=== PATIENT | female | born 1945 | race Two or more races ===

== ENCOUNTER 2018-02-11 13:49 | Emergency (ER) | payer OTHER, MEDICAID ==
[~2018-02-11] VITALS: Ht 154.9 cm; Wt 69.4 kg
[~2018-02-11 13:49] MED LIST: ASPI81CH43 PO; ATOR20TA50 PO; DOXY-216 PO; HYDR25TA4 PO; LISI-646 PO; MET5XLT PO; POTA-167 PO
[2018-02-11 14:11] VITALS: BP 227/105
[2018-02-11] MEDS ORDERED: ACETAMINOPHEN 325 MG TAB PO ONE (14:30)
[2018-02-11] MEDS ORDERED: amLODIPine BESYLATE 5 MG TAB PO ONE (15:00)
[2018-02-11] MEDS ORDERED: HYDROcodone-ACET 10/325MG TAB PO ONE (15:00)
== END 2018-02-11 16:44 | disposition home or self-care (01) ==
LOC: ER 13:49
DX: S82.852A Displaced trimalleolar fracture of left lower leg, initial encounter for closed fracture (principal); I10 Essential (primary) hypertension; W01.0XXA Fall on same level from slipping, tripping and stumbling without subsequent striking against object, initial encounter; Y93.89 Activity, other specified; Y99.8 Other external cause status; Y92.89 Other specified places as the place of occurrence of the external cause
CPT/HCPCS: 29515; 73610

== ENCOUNTER 2019-07-12 12:35 | Inpatient (IN) | payer OTHER, MEDICAID ==
[~2019-07-12] VITALS: Ht 154.9 cm; Wt 76.9 kg
[~2019-07-12 12:35] MED LIST changes: -DOXY-216 PO; +DOXY-286 PO; -MET5XLT PO; +METO-6 PO
[2019-07-12] MEDS ORDERED: cloNIDine HCL 0.1 MG TAB PO ONE (13:00)
[2019-07-12 13:38] LABS: Basophils # (auto) 0.1 10 ^3/uL (0-0.2); Basophils % (auto) 0.7 % (0.0-2.0); Eosinophils # (auto) 0.3 10 ^3/uL (0-0.8); Eosinophils % (auto) 2.2 % (0.0-7.0); Hematocrit 48.6 % (36.0-46.0); Hemoglobin 15.9 g/dL (12.2-16.2); Lymphocytes # (auto) 2.9 10 ^3/uL (0.4-5.4); Lymphocytes % (auto) 19.7 % (10.0-50.0); Mean Corpuscular Hemoglobin 27.2 pg (28.0-32.0); Mean Corpuscular Hgb Conc. 32.6 g/dL (32.0-36.0); Mean Corpuscular Volume 83.5 fL (80.0-100.0); Monocytes # (auto) 0.9 10 ^3/uL (0-1.3); Monocytes % (auto) 5.9 % (0.0-12.0); Neutrophils # (auto) 10.5 10 ^3/uL (1.6-8.6); Neutrophils % (auto) 71.5 % (37.0-80.0); Nucleated Red Blood Cells % 0.2 %; Platelet Count (auto) 261 10^3/uL (140-450); Red Blood Cells 5.83 10^6/uL (4.0-5.20); Red Cell Distribution Width 14.9 % (11.8-14.3); White Blood Cell 14.7 10^3/uL (4.4-10.8)
[2019-07-12 14:04] LABS: Albumin 3.6 g/dL (3.4-5.0); Calcium 8.9 mg/dL (8.5-10.1); Potassium 3.6 mmol/L (3.5-5.1)
[2019-07-12 14:06] LABS: Bilirubin, Total 0.3 mg/dL (0.2-1.0); Total Protein 8.1 g/dL (6.4-8.2)
[2019-07-12] MEDS ORDERED: HYDROcodone-ACET 10/325MG TAB PO ONE (14:30)
[2019-07-12 14:51] LABS: Magnesium 2.4 mg/dL (1.6-2.6)
[2019-07-12 15:44] LABS: Urine Bacteria NONE SEEN /hpf (None Seen); Urine Blood 1+ /uL (Negative); Urine Specific Gravity 1.011 (1.001-1.035); Urine WBC 2 /hpf (0 - 5)
[2019-07-12] MEDS ORDERED: ASPirin-EC 81 mg tab PO ONE (18:15)
[2019-07-12] MEDS ORDERED: MORPHINE SULF INJ 2 MG/ML SYRINGE 1ML IV PRN (20:15)
[2019-07-12 21:10] VITALS: BP 135/70
--- NOTE | 2019-07-12 21:20 | NUR ---
Telemetry admit from ER JENAE BECK admitted to Telemetry unit after SBAR received. Patient oriented to FRANK MTZ, RN primary RN, unit, room, bed, and unit policies regarding patient care and visiting hours. Patient now on continuous telemetry monitoring, tele box # 77 and telemetry reading on arrival to unit is SR-60. Patient placed on bedside oxygen, weighed by bedscale and encouraged to call if they need something. All questions and concerns addressed, patient verbalized understanding. Patient complained of left shoulder pain 8/10, will administer PRN pain medication.
[2019-07-12] MEDS: HYDROcodone-ACET 5/325MG TAB PO PRN (21:44)
[2019-07-12] MEDS: METOPROLOL TARTRATE 25 MG TAB PO SCH (21:44)
[2019-07-12] MEDS: ATORVASTATIN 20 MG TAB PO SCH (21:44)
[2019-07-12 22:00] VITALS: BP 135/70
[2019-07-13 05:00] VITALS: BP 134/77
[2019-07-13 06:33] LABS: Basophils # (auto) 0.1 10 ^3/uL (0-0.2); Basophils % (auto) 0.8 % (0.0-2.0); Eosinophils # (auto) 0.5 10 ^3/uL (0-0.8); Eosinophils % (auto) 4.4 % (0.0-7.0); Hematocrit 42.7 % (36.0-46.0); Hemoglobin 14.3 g/dL (12.2-16.2); Lymphocytes % (auto) 37.5 % (10.0-50.0); Mean Corpuscular Hemoglobin 27.9 pg (28.0-32.0); Mean Corpuscular Hgb Conc. 33.4 g/dL (32.0-36.0); Mean Corpuscular Volume 83.5 fL (80.0-100.0); Monocytes % (auto) 9.1 % (0.0-12.0); Neutrophils # (auto) 5.2 10 ^3/uL (1.6-8.6); Neutrophils % (auto) 48.2 % (37.0-80.0); Nucleated Red Blood Cells % 0.1 %; Platelet Count (auto) 217 10^3/uL (140-450); Red Blood Cells 5.12 10^6/uL (4.0-5.20); Red Cell Distribution Width 15.2 % (11.8-14.3); White Blood Cell 10.8 10^3/uL (4.4-10.8)
[2019-07-13 06:45] LABS: BUN/Creatinine Ratio 34.9; Calcium 8.5 mg/dL (8.5-10.1); Potassium 3.4 mmol/L (3.5-5.1)
--- NOTE | 2019-07-13 07:20 | NUR ---
Opening Shift Note Assumed care of patient, who is alert and oriented x4. Respirations are even and unlabored. No S/S of distress/SOB or pain. PIV to L AC patent and intact. Bed is low, locked with 2x side rails up. Call light is within reach. Instructed on POC and to call for assist PRN, will continue to monitor for changes Q1hr and PRN.
[2019-07-13 08:00] VITALS: BP 141/68
[2019-07-13 08:54] VITALS: BP 141/68
[2019-07-13] MEDS: METOPROLOL TARTRATE 25 MG TAB PO SCH ×2 (09:48→21:49)
[2019-07-13] MEDS: FAMOTIDINE 20 MG TAB PO SCH (09:49)
[2019-07-13] MEDS: ASPirin-EC 81 mg tab PO SCH (09:49)
[2019-07-13] MEDS: HYDROcodone-ACET 5/325MG TAB PO PRN ×2 (09:50→22:02)
--- NOTE | 2019-07-13 09:52 | NUR ---
Pain Patient reporting 6/10 pain on adult pain scale. Pain is to the right shoulder, non radiating. Medicated per MD order [place] 5/326mg and provided patient with heat pack. Will re-assess. Addendum: 07/13/19 at 1143 by Ritu Hanley RN RN CORRECTION: [place] 5/325 MG
[2019-07-13] MEDS ORDERED: LISINOPRIL 10 MG TAB PO SCH (10:00)
[2019-07-13] MEDS ORDERED: ADENOSINE 59 MG in GIVE UN-DILUTED 0 ML IV STA (10:20)
[2019-07-13] MEDS ORDERED: POTASSIUM CHL 20 Meq TABLET PO ONE (10:30)
[2019-07-13] MEDS ORDERED: LISINOPRIL 20 MG TAB PO ONE (10:30)
--- NOTE | 2019-07-13 10:39 | NUR ---
Stress Test Patient off unit for stress test. No distress noted upon departure.
--- NOTE | 2019-07-13 11:27 | NUR ---
Kidney Ultrasound Spoke with Jp from radiology and he stated patient needs to be NPO for at least 8 hours for kidney ultrasound to be done. He also stated that no one would be available in the evening so the ultrasound of kidney will be done tomorrow. Patient to be NPO after midnight. Will relay message to oncoming nurse.
--- NOTE | 2019-07-13 12:05 | NUR ---
Back from stress test No distress noted upon return. Will continue to monitor.
[2019-07-13] MEDS: hydrALAZINE HCL 20 MG/ML VL IV PRN (12:19)
[2019-07-13 13:00] VITALS: BP 150/78
[2019-07-13 16:51] VITALS: BP 134/73
--- NOTE | 2019-07-13 19:30 | NUR ---
Opening Shift Note Assumed care of patient, awake and alert. No S/S of distress/SOB or pain. Patient aware of LHC and kidney US tomorrow, instructed patient that she is going to be NPO after midnight. Instructed on POC and to call for assist PRN, will continue to monitor for changes Q1hr and PRN.
[2019-07-13] MEDS: ATORVASTATIN 20 MG TAB PO SCH (21:49)
[2019-07-13 22:15] VITALS: BP 157/75
[2019-07-14] MEDS: hydrALAZINE HCL 20 MG/ML VL IV PRN ×2 (05:18→11:25)
[2019-07-14 05:30] VITALS: BP 169/84
[2019-07-14 07:17] LABS: Eosinophils # (auto) 0.6 10 ^3/uL (0-0.8); Lymphocytes # (auto) 4.5 10 ^3/uL (0.4-5.4); Mean Corpuscular Hgb Conc. 32.7 g/dL (32.0-36.0); Monocytes # (auto) 0.7 10 ^3/uL (0-1.3)
[2019-07-14 07:19] LABS: Basophils # (auto) 0.1 10 ^3/uL (0-0.2); Basophils % (auto) 0.9 % (0.0-2.0); Hematocrit 50.4 % (36.0-46.0); Hemoglobin 16.5 g/dL (12.2-16.2); Mean Corpuscular Hemoglobin 27.3 pg (28.0-32.0); Mean Corpuscular Volume 83.6 fL (80.0-100.0); Monocytes % (auto) 6.1 % (0.0-12.0); Neutrophils # (auto) 5.4 10 ^3/uL (1.6-8.6); Nucleated Red Blood Cells % 0.2 %; Platelet Count (auto) 297 10^3/uL (140-450); Red Blood Cells 6.03 10^6/uL (4.0-5.20); Red Cell Distribution Width 15.3 % (11.8-14.3); White Blood Cell 11.3 10^3/uL (4.4-10.8)
[2019-07-14 07:31] LABS: Potassium 3.8 mmol/L (3.5-5.1)
[2019-07-14 07:34] LABS: INR 0.99 (0.9-1.15); Partial Thromboplastin Time 23.1 sec (23.64-32.05)
[2019-07-14 07:35] LABS: BUN/Creatinine Ratio 26.9
[2019-07-14] MEDS: METOPROLOL TARTRATE 25 MG TAB PO SCH ×2 (09:45→21:51)
[2019-07-14] MEDS: FAMOTIDINE 20 MG TAB PO SCH (09:45)
[2019-07-14] MEDS: ASPirin-EC 81 mg tab PO SCH (09:45)
[2019-07-14] MEDS: LISINOPRIL 20 MG TAB PO SCH (09:45)
[2019-07-14 09:46] VITALS: BP 153/79
[2019-07-14] MEDS: HYDROcodone-ACET 5/325MG TAB PO PRN (12:12)
[2019-07-14] MEDS ORDERED: METO-169 PO (12:18)
[2019-07-14 12:46] VITALS: BP 186/91
--- NOTE | 2019-07-14 14:05 | NUR ---
Off Unit Patient taken to laboratory apparatus glass blower for left heart cath.
[2019-07-14] MEDS ORDERED: MIDAZOLAM HCL 1MG/1ML-2 ML VIAL ONE (14:31)
[2019-07-14] MEDS ORDERED: VERAPAMIL 2.5MG/ML INJ 2ML VIAL IV ONE (14:31)
[2019-07-14] MEDS ORDERED: ANGIOMAX 250 MG VIAL IV ONE (14:31)
[2019-07-14] MEDS ORDERED: fentaNYL CITRATE 100 MCG/2 ML VL ONE (14:31)
[2019-07-14] MEDS ORDERED: SODIUM CHL 0.9% 0 ML ONE (14:32)
[2019-07-14] MEDS ORDERED: LIDOCAINE 2%HCL (LOCAL ANESTH.) INJ 20ML MDV ONE (14:32)
[2019-07-14] MEDS ORDERED: HEPARIN SODIUM (PORCINE) 5000 UNITS/ML 1ML VIAL ONE (14:34)
[2019-07-14] MEDS ORDERED: IODIXANOL 320MG/ML 100ML BTL IV ONE (14:41)
--- NOTE | 2019-07-14 16:20 | NUR ---
On Unit Patient returned to unit from laborer brush clearing. Vasc band in place to right wrist. Patient is awake, alert and oriented. Family members at bedside. Call light placed within reach and patient was encouraged to call for assistance.
--- NOTE | 2019-07-14 17:00 | NUR ---
Vasc Band Deflation began as ordered. Patient complained of slight numbness to right thumb. She can feel touch and move fingers.
--- NOTE | 2019-07-14 17:15 | NUR ---
Vasc Band Additional 2cc removed. No bleeding noted.
--- NOTE | 2019-07-14 17:35 | NUR ---
Vasc Band Additional 2cc removed.
--- NOTE | 2019-07-14 18:15 | NUR ---
Vasc Band Vasc band removed and pressure dressing applied.
--- NOTE | 2019-07-14 19:15 | NUR ---
Opening Shift Note Assumed care of patient, awake, alert and oriented X 4. Patient is connected to tele monitor #77 with Sinus Rhythm 86 bpm with no S/S of distress/SOB or pain. Bed is in lowest position, locked, two side rails raised, and call gamble is within reach. Daughter is at the bedside. Instructed on POC and to call for assist PRN, will continue to monitor for changes Q1hr and PRN.
[2019-07-14 19:46] VITALS: BP 125/65
--- NOTE | 2019-07-14 20:00 | NUR ---
Dr Rahman called to inform patient that she will be having surgery on Sunday 07/16 at 0800, and he will be in tomorrow 07/14 or Saturday 07/15 to speak with her and her family regarding the procedure. Patient notified at this time of plan and she verbalized understanding.
[2019-07-14] MEDS ORDERED: ACCU-CHEK COMFORT CURVE STRIP VI ONE (20:15)
[2019-07-14] MEDS ORDERED: ceFAZolin 1GM 2 GM in D5W 5% 50 ML IV ONE (20:15)
[2019-07-14] MEDS ORDERED: VANCOMYCIN 1GM/250ML 250 ML IV ONE (20:15)
[2019-07-14 21:00] VITALS: BP 125/65
[2019-07-14] MEDS ORDERED: MUPIROCIN 2% OINT 15gm or 22gm TOP SCH (21:00)
[2019-07-14] MEDS: ATORVASTATIN 20 MG TAB PO SCH (21:52)
[2019-07-14] MEDS ORDERED: ASCORBIC ACID 500 MG TAB PO ONE (22:00)
[2019-07-15] MEDS ORDERED: CHLORHEXIDINE 4% TOPICAL soln 118ml TOP ONE (02:00)
[2019-07-15 02:31] LABS: Urine Bacteria FEW /hpf (None Seen); Urine Blood TRACE /uL (Negative); Urine Mucus FEW (None Seen); Urine Specific Gravity 1.037 (1.001-1.035); Urine WBC 11 /hpf (0 - 5)
[2019-07-15 04:30] VITALS: BP 151/78
[2019-07-15] MEDS: hydrALAZINE HCL 20 MG/ML VL IV PRN ×2 (05:18→18:01)
[2019-07-15 06:09] LABS: Basophils # (auto) 0.1 10 ^3/uL (0-0.2); Basophils % (auto) 1.1 % (0.0-2.0); Eosinophils # (auto) 0.3 10 ^3/uL (0-0.8); Eosinophils % (auto) 2.7 % (0.0-7.0); Hematocrit 46.3 % (36.0-46.0); Hemoglobin 15.6 g/dL (12.2-16.2); Lymphocytes # (auto) 3.7 10 ^3/uL (0.4-5.4); Lymphocytes % (auto) 30.1 % (10.0-50.0); Mean Corpuscular Hemoglobin 27.9 pg (28.0-32.0); Mean Corpuscular Hgb Conc. 33.7 g/dL (32.0-36.0); Mean Corpuscular Volume 82.8 fL (80.0-100.0); Monocytes # (auto) 0.9 10 ^3/uL (0-1.3); Monocytes % (auto) 7.7 % (0.0-12.0); Neutrophils # (auto) 7.1 10 ^3/uL (1.6-8.6); Neutrophils % (auto) 58.4 % (37.0-80.0); Platelet Count (auto) 297 10^3/uL (140-450); Red Blood Cells 5.59 10^6/uL (4.0-5.20); Red Cell Distribution Width 14.8 % (11.8-14.3); White Blood Cell 12.2 10^3/uL (4.4-10.8)
[2019-07-15 06:34] LABS: INR 1.03 (0.9-1.15); Partial Thromboplastin Time 27.9 sec (23.64-32.05)
[2019-07-15 06:48] LABS: Calcium 8.6 mg/dL (8.5-10.1)
[2019-07-15 06:51] LABS: BUN/Creatinine Ratio 27.1
--- NOTE | 2019-07-15 07:50 | NUR ---
Opening Shift Note Assumed care of patient, awake and alert. No S/S of distress/SOB or pain. Instructed on POC and to call for assist PRN, will continue to monitor for changes Q1hr and PRN.
[2019-07-15] MEDS: LISINOPRIL 20 MG TAB PO SCH (08:54)
[2019-07-15] MEDS: METOPROLOL TARTRATE 25 MG TAB PO SCH ×2 (08:54→23:33)
[2019-07-15] MEDS: FAMOTIDINE 20 MG TAB PO SCH (08:54)
[2019-07-15] MEDS: HYDROcodone-ACET 5/325MG TAB PO PRN (08:55)
--- NOTE | 2019-07-15 08:55 | NUR ---
Pain Patient complained of pain level 6 to head. [place] 5/325 given as ordered. Will reassess.
[2019-07-15 09:00] VITALS: BP 145/75
--- NOTE | 2019-07-15 09:30 | NUR ---
ABG DONE AND RESULTS GIVEN VIA TELEPHONE TO DR. CHANCE. BEDSIDE SPIROMETRY NOT DONE DUE TO PaO2 >50. RN MADE AWARE. WILL CONTINUE TO MONITOR PT.
[2019-07-15] MEDS: ASPirin-EC 81 mg tab PO SCH (10:00)
[2019-07-15] MEDS ORDERED: IOHEXOL 350 MG/ML 100ML IJ ONE (11:29)
[2019-07-15 13:00] VITALS: BP 147/76
--- NOTE | 2019-07-15 13:01 | NUR ---
CABG Postponed for Wednesday Phone call received from Dr. Rahman. 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 He spoke with Dr. Sadler and prefers for the carotid artery to be taken care of first then they ca discuss the heart problems. Patient to be notified.
--- NOTE | 2019-07-15 15:45 | NUR ---
Hospitalist [place]. Patient made aware of CT Angio neck result and that Dr. Rahman communicated with Dr. Sadler to take care of it before CABG. CABG will not be performed on Wednesday.
[2019-07-15 17:00] VITALS: BP 154/86
--- NOTE | 2019-07-15 18:38 | NUR ---
Blood Pressure Rechecked Rechecked patient's blood pressure 139/59. Heart rate 103.
[2019-07-15 18:40] VITALS: BP 139/59
--- NOTE | 2019-07-15 19:00 | NUR ---
Shift Closing Notes Patient laying in bed, complained of having a burning sensation in her throat. Patient stated that she noticed it yesterday after receiving hydralazine but did not know what it was so she did not report it. She also stated that it happened this morning after receiving same medication and it is happening now after medication given. She also complained of a slight burning sensation in her chest which is resolving. Will page hospitalist and inform incoming RN regarding hydralazine.
--- NOTE | 2019-07-15 19:10 | NUR ---
Opening Shift Note Assumed care of patient, awake, alert and oriented x 4. Patient is complaining of non-radiating chest pain /, will medicate PRN, patient is connected to telemetry box #71 and HR is 95 bpm. Bed is low, locked, two side rails raised, and call gamble within reach. Instructed on POC and to call for assist PRN, will continue to monitor for changes Q1hr and PRN.
--- NOTE | 2019-07-15 19:10 | NUR ---
Reassess Patient states she is still having burning sensation in her throat, but it is not as bad as before. No SOB or rashes noted, no itching reported. Vitals within normal limits. HR 90. B/P 137/60. T 98.6. On-call hospitalist paged.
--- NOTE | 2019-07-15 19:40 | NUR ---
Wood Machinist hospitalist Dr. Salguero returned call, order received to give patient nitroglycerin 0.4mg and if pain does not go away to give morphine for chest pain. warehouse supervisor 3rd shift RN will be notified.
[2019-07-15] MEDS: NITROGLYCERIN 0.4 MG SL TAB SL PRN ×2 (19:58→22:07)
--- NOTE | 2019-07-15 19:59 | NUR ---
Patient complaining of chest pain 8/10 radiating to right jaw, nitro 0.[address] Guevara orders. Currently in patient's room, Will continue to monitor.
[2019-07-15 20:00] VITALS: BP 157/71
--- NOTE | 2019-07-15 20:08 | NUR ---
Patient complains of non-radiating chest pain 11/09 stating, "It feels like pressure in my chest again." 0.4 mg sublingual Nitro given. Will continue to monitor
[2019-07-15] MEDS ORDERED: CHLORHEXIDINE 0.12% ORAL rinse 473ML MT ONE (20:15)
--- NOTE | 2019-07-15 20:18 | NUR ---
Patient states relief of chest pain 0/10. Will continue to monitor.
[2019-07-15] MEDS: ONDANSETRON HCL 4 MG/2 ML VIAL IV PRN (20:19)
--- NOTE | 2019-07-15 20:20 | NUR ---
Patient complains of chest pain /, with SOB and flushing of the face, states, "I feel pressure in the middle of my chest going up to my jaws.", Morphine 2 mg IVP for chest pain administered, Current vitals are: BP 157/76, HR 95, O2 saturation 100% on room air, Patient is connected to night monitor, will continue to monitor.
--- NOTE | 2019-07-15 20:30 | NUR ---
Patient states relief from chest pain, current pain level is 4/10 with no chest pressure or radiating. Will continue to monitor.
--- NOTE | 2019-07-15 22:40 | NUR ---
Paged Hospitalist regarding chest pain. Waiting for call back.
--- NOTE | 2019-07-15 22:42 | NUR ---
Hospitalist MD Alex called, orders for Troponin and repeat EKG given. Patient is resting comfortably with no S/S of chest pain or SOB, complains of headache 3/10. Will continue to monitor.
[2019-07-15] MEDS: ATORVASTATIN 20 MG TAB PO SCH (23:33)
--- NOTE | 2019-07-16 00:09 | NUR ---
Patient is resting comfortably, no S/S of distress or SOB. Will continue to monitor.
[2019-07-16 05:00] VITALS: BP 139/67
[2019-07-16 06:05] LABS: Basophils # (auto) 0.1 10 ^3/uL (0-0.2); Basophils % (auto) 0.8 % (0.0-2.0); Eosinophils # (auto) 0.3 10 ^3/uL (0-0.8); Eosinophils % (auto) 2.5 % (0.0-7.0); Hematocrit 43.8 % (36.0-46.0); Hemoglobin 14.4 g/dL (12.2-16.2); Lymphocytes # (auto) 3.1 10 ^3/uL (0.4-5.4); Lymphocytes % (auto) 30.5 % (10.0-50.0); Mean Corpuscular Hemoglobin 27.6 pg (28.0-32.0); Mean Corpuscular Hgb Conc. 32.9 g/dL (32.0-36.0); Mean Corpuscular Volume 83.9 fL (80.0-100.0); Monocytes % (auto) 9.6 % (0.0-12.0); Neutrophils # (auto) 5.7 10 ^3/uL (1.6-8.6); Neutrophils % (auto) 56.6 % (37.0-80.0); Nucleated Red Blood Cells % 0.1 %; Platelet Count (auto) 264 10^3/uL (140-450); Red Blood Cells 5.22 10^6/uL (4.0-5.20); Red Cell Distribution Width 14.9 % (11.8-14.3); White Blood Cell 10.1 10^3/uL (4.4-10.8)
[2019-07-16 06:19] LABS: Calcium 8.3 mg/dL (8.5-10.1)
[2019-07-16 06:26] LABS: BUN/Creatinine Ratio 31.4; Bilirubin, Total 0.5 mg/dL (0.2-1.0); Total Protein 6.9 g/dL (6.4-8.2)
--- NOTE | 2019-07-16 06:42 | NUR ---
Received critical lab value of 1.040 troponin I from Yt in lab. Notified hospitalist MD Alex, he suggests following up with cardiac regarding the current lab values. Dr Sadler is the consulting cardiopulmonary physician. Patient is resting comfortably, denies any chest pain or SOB at this moment. Spoke to PBX and Dr Sadler is not available until later this morning. Will endorse to primary day shift RN.
--- NOTE | 2019-07-16 07:35 | NUR ---
Opening Shift Note Assumed care of patient, awake and alert, sitting up in bed. No S/S of distress/SOB or pain. Patient stated that she is feeling much better this morning and after her chest pain went away she slept very well. Patient stated that she is currently having no pain. Instructed on POC and to call for assist PRN, will continue to monitor for changes Q1hr and PRN.
--- NOTE | 2019-07-16 08:55 | NUR ---
Family members at bedside.
[2019-07-16 09:07] VITALS: BP 125/70
[2019-07-16] MEDS: METOPROLOL TARTRATE 25 MG TAB PO SCH ×2 (10:22→22:01)
[2019-07-16] MEDS: FAMOTIDINE 20 MG TAB PO SCH (10:22)
[2019-07-16] MEDS: ASPirin-EC 81 mg tab PO SCH (10:22)
[2019-07-16] MEDS: LISINOPRIL 20 MG TAB PO SCH (10:23)
--- NOTE | 2019-07-16 11:15 | NUR ---
Rounding Patient in bed, senior energy market coordinator and family members at bedside.
[2019-07-16 13:00] VITALS: BP 142/69
[2019-07-16 16:40] VITALS: BP 158/95
--- NOTE | 2019-07-16 16:55 | NUR ---
Rounding Paged Dr. Rahman. Family members has questions regarding surgery.
--- NOTE | 2019-07-16 18:50 | NUR ---
Rounding Patient in bed communicating with family. No complaints of chest pain during shift.
[2019-07-16] MEDS ORDERED: cefTRIAXone 1GM/50ML D5W 50 ML IV ONE (20:30)
--- NOTE | 2019-07-16 20:30 | NUR ---
Talke to Dr. Alex that the urine analysis result is 3plus leukocytes and no order for antibiotic with order to to give Rocephin one gram i.v.p.g.b now and daily
[2019-07-16] MEDS: ATORVASTATIN 20 MG TAB PO SCH (21:35)
[2019-07-16 22:08] VITALS: BP 141/68
[2019-07-17] VITALS (13 sets, daily range): BP systolic 98–169; BP diastolic 43–78
[2019-07-17 05:54] LABS: Basophils # (auto) 0.1 10 ^3/uL (0-0.2); Basophils % (auto) 1.1 % (0.0-2.0); Eosinophils # (auto) 0.5 10 ^3/uL (0-0.8); Hematocrit 44.1 % (36.0-46.0); Hemoglobin 14.7 g/dL (12.2-16.2); Lymphocytes # (auto) 2.9 10 ^3/uL (0.4-5.4); Lymphocytes % (auto) 29.7 % (10.0-50.0); Mean Corpuscular Hgb Conc. 33.3 g/dL (32.0-36.0); Mean Corpuscular Volume 84.1 fL (80.0-100.0); Monocytes # (auto) 0.7 10 ^3/uL (0-1.3); Monocytes % (auto) 7.4 % (0.0-12.0); Neutrophils # (auto) 5.5 10 ^3/uL (1.6-8.6); Neutrophils % (auto) 56.8 % (37.0-80.0); Nucleated Red Blood Cells % 0.2 %; Platelet Count (auto) 274 10^3/uL (140-450); Red Blood Cells 5.24 10^6/uL (4.0-5.20); Red Cell Distribution Width 14.9 % (11.8-14.3); White Blood Cell 9.7 10^3/uL (4.4-10.8)
[2019-07-17 06:13] LABS: BUN/Creatinine Ratio 33.3; Calcium 8.6 mg/dL (8.5-10.1); Potassium 4.2 mmol/L (3.5-5.1)
--- NOTE | 2019-07-17 07:04 | NUR ---
Report given to Ky Hannah, patient is resting no distress.
--- NOTE | 2019-07-17 07:10 | NUR ---
Opening Shift Note: Assumed care of patient, awake and alert. No S/S of distress/SOB or pain. Bed in lowest locked position, side rails up x2, call light within reach. Patient instructed on POC and to call for assist PRN, will continue to monitor for changes Q1hr and PRN.
[2019-07-17] MEDS: cloNIDine HCL 0.1 MG TAB PO PRN (08:26)
--- NOTE | 2019-07-17 08:27 | NUR ---
BLOOD PRESSURE Patient blood pressure at this time is 170/74 Ordered pain medications given. Will continue to monitor.
--- NOTE | 2019-07-17 09:42 | NUR ---
REGULATORY MANAGER Patient transported to labor relations worker. No S/S of distress noted at this time.
[2019-07-17] MEDS: FAMOTIDINE 20 MG TAB PO SCH (10:00)
[2019-07-17] MEDS: LISINOPRIL 20 MG TAB PO SCH (10:00)
[2019-07-17] MEDS: METOPROLOL TARTRATE 25 MG TAB PO SCH ×2 (10:00→22:00)
[2019-07-17] MEDS: ASPirin-EC 81 mg tab PO SCH (10:00)
[2019-07-17] MEDS ORDERED: SODIUM CHL 0.9% 50 ML ONE (10:18)
[2019-07-17] MEDS ORDERED: ANGIOMAX 250 MG VIAL IV ONE (10:18)
[2019-07-17] MEDS ORDERED: GLYCOPYRROLATE 0.2 MG/ML 1ML VIAL ONE (10:18)
[2019-07-17] MEDS ORDERED: PHENYLEPHRINE HCL 10 MG/ML VL ONE ×2 (10:18→12:07)
[2019-07-17] MEDS ORDERED: hydrALAZINE HCL 20 MG/ML VL ONE (10:52)
[2019-07-17] MEDS ORDERED: IODIXANOL 320MG/ML 100ML BTL IV ONE (11:09)
[2019-07-17] MEDS ORDERED: ASPirin 325 MG TAB PO ONE (12:45)
[2019-07-17] MEDS ORDERED: NOREPINEPHRINE 8 MG/250ML KIT 250 ML IV ONE (13:33)
[2019-07-17] MEDS: NOREPINEPHRINE 8 MG/250ML KIT 250 ML IV SCH (13:44)
[2019-07-17] MEDS ORDERED: SODIUM CHLORIDE 0.9% 1,000 ML IV ONE (14:30)
[2019-07-17] MEDS ORDERED: MIDODRINE HCL 10 MG TAB PO ONE ×2 (14:45→18:30)
[2019-07-17] MEDS: cefTRIAXone 1GM/50ML D5W 50 ML IV SCH (21:00)
--- NOTE | 2019-07-17 21:07 | NUR ---
ICU pt S/P Cardiac Cath Report received from Sharon SINHA. JENAE BECK brought to bed following Cardiac catheterization, on vehicle monitor technician and portable oxygen. Patient transferred to ICU bed, connected to ICU monitoring and oxygen. Pt instructed to notify staff immediately for any unusualities. Patient educated on new cardiac medications. All questions and concerns addressed, patient verbalized understanding of all education and instruction. NOTE: Pt on levophed drip
[2019-07-17] MEDS: ATORVASTATIN 20 MG TAB PO SCH (22:00)
[2019-07-17] MEDS ORDERED: MIDODRINE HCL 10 MG TAB PO PRN (22:00)
--- NOTE | 2019-07-17 22:02 | NUR ---
RECEIVED A CALL FROM PT'S DTRLAURENT AND UPDATED ON PT'S STATUS AFTER OBTAINING A PASSWORD. ALL QUESTIONS AND CONCERNS WERE ADDRESSED.
--- NOTE | 2019-07-17 22:30 | NUR ---
Respiratory note: PT SEEN AT 2230 FOR CPAP AT [facility]. PT EDUCATED ON THE PURPOSE OF CPAP AND EXPLAINED TO THE PT WHAT SLEEP APNEA IS. PT STATED THAT SHE HAS NEVER WORN A CPAP BEFORE OR DIAGNOSED WITH SLEEP APNEA. PT AGREED TO TRY IT OUT AND WEAR IT. BEFORE EVEN BEING ABLE TO FINISH STRAPPING ON THE FACIAL MASK, THE PT TOLD ME TO REMOVE IT BECAUSE IT WAS TOO STRONG. I DECREASED THE SETTING TO THE LOWEST SETTING THE MACHINE HAS BUT SHE STILL INSISTED THAT IT FELT TOO STRONG AND DIDN'T WANT TO TRY IT ANYMORE. CPAP TAKEN OUT OF ROOM. NO DISTRESS NOTED. WILL CONT. TO TREAT ORDERED.
[2019-07-18] VITALS (66 sets, daily range): BP systolic 92–141; BP diastolic 40–66
--- NOTE | 2019-07-18 03:00 | NUR ---
HYGIENE/ ELIMINATION VOIDED THROUGH THE BEDPAN WITH SOME URINE INCONTINENCE, CLEANSED AND KEPT DRY AND COMFORTABLE, GOWN AND PARTIAL LINEN CHANGED. REPOSITIONED FOR COMFORT.
[2019-07-18 04:10] LABS: Hematocrit 41.2 % (36.0-46.0); Hemoglobin 13.5 g/dL (12.2-16.2)
[2019-07-18] MEDS: ACETAMINOPHEN 500 MG TAB PO PRN ×2 (04:20→18:54)
--- NOTE | 2019-07-18 04:20 | NUR ---
PAIN C/O HEADACHE, SCALE 7/10, TYLENOL 500 MG GIVEN PO ORDERED PRN.
[2019-07-18 04:40] LABS: Magnesium 2.2 mg/dL (1.6-2.6); Potassium 3.8 mmol/L (3.5-5.1)
[2019-07-18 04:43] LABS: BUN/Creatinine Ratio 28.1
[2019-07-18] MEDS: cloNIDine HCL 0.1 MG TAB PO PRN (08:18)
--- NOTE | 2019-07-18 08:30 | NUR ---
CALL FROM PATIENTS DAUGHTER MANDA UPDATED ON POC AND PATIENTS CURRENT CONDITION.
--- NOTE | 2019-07-18 09:06 | NUR ---
DR. LANGE HERE TO SEE PATIENT. SEE MD WALLS AND EMR FOR ANY NEW ORDERS.
--- NOTE | 2019-07-18 09:45 | NUR ---
DR. GUEVARA AT BEDSIDE. SEE MD NOTES AND EMR FOR ANY NEW ORDERS.
[2019-07-18] MEDS: FAMOTIDINE 20 MG TAB PO SCH (09:54)
[2019-07-18] MEDS: ASPirin 81 mg TAB PO SCH (09:54)
[2019-07-18] MEDS: METOPROLOL TARTRATE 25 MG TAB PO SCH ×2 (10:00→22:00)
[2019-07-18] MEDS: LISINOPRIL 20 MG TAB PO SCH (10:00)
[2019-07-18] MEDS: NOREPINEPHRINE 8 MG/250ML KIT 250 ML IV SCH (13:45)
--- NOTE | 2019-07-18 14:30 | NUR ---
PATIENT TAKEN TO CT SCAN. SEE REPORT.
[2019-07-18] MEDS: ONDANSETRON HCL 4 MG/2 ML VIAL IV PRN (18:23)
--- NOTE | 2019-07-18 19:00 | NUR ---
Opening note assumed care of patient at this time. Report received from day shift Rn. POC reviewed. head to toe assessment complete, see intervention spreadsheet for complete details. Received pt alert and oriented x4. Pt denies pain at this time. VSS. IV sites benign. Bed locked and in lowest position, safety precautions in place. Call light within reach. Will monitor pt carefully.
[2019-07-18] MEDS: cefTRIAXone 1GM/50ML D5W 50 ML IV SCH (21:24)
--- NOTE | 2019-07-18 21:54 | NUR ---
report given to Hossein
[2019-07-18] MEDS: ATORVASTATIN 20 MG TAB PO SCH (22:00)
[2019-07-19] VITALS: BP 117/52
[2019-07-19] MEDS: HYDROcodone-ACET 5/325MG TAB PO PRN ×3 (01:15→20:31)
--- NOTE | 2019-07-19 01:16 | NUR ---
PAIN: Pt c/o tooth pain at level 7/10. Pt requesting medication for pain. Pt medicated w/ [place] 5/325mg PO as per order. To continue to monitor pt.
[2019-07-19] MEDS ORDERED: CHLORHEXIDINE 4% TOPICAL soln 118ml TOP ONE (02:00)
--- NOTE | 2019-07-19 03:30 | NUR ---
PT APPEARS TO BE RESTING BREATHING EVEN AND UNLABORED. NO S/S OF RESPIRATORY DISTRESS.
[2019-07-19] MEDS: MORPHINE SULF INJ 2 MG/ML SYRINGE 1ML IV PRN (03:52)
[2019-07-19 04:00] VITALS: BP 110/58
[2019-07-19 05:54] LABS: Basophils # (auto) 0.1 10 ^3/uL (0-0.2); Eosinophils # (auto) 0.4 10 ^3/uL (0-0.8); Eosinophils % (auto) 4.2 % (0.0-7.0); Hematocrit 38.6 % (36.0-46.0); Hemoglobin 12.7 g/dL (12.2-16.2); Lymphocytes # (auto) 3.2 10 ^3/uL (0.4-5.4); Lymphocytes % (auto) 35.9 % (10.0-50.0); Mean Corpuscular Hemoglobin 27.6 pg (28.0-32.0); Mean Corpuscular Hgb Conc. 32.8 g/dL (32.0-36.0); Mean Corpuscular Volume 84.1 fL (80.0-100.0); Monocytes # (auto) 0.8 10 ^3/uL (0-1.3); Monocytes % (auto) 8.4 % (0.0-12.0); Neutrophils # (auto) 4.6 10 ^3/uL (1.6-8.6); Neutrophils % (auto) 50.5 % (37.0-80.0); Nucleated Red Blood Cells % 0.1 %; Platelet Count (auto) 235 10^3/uL (140-450); Red Blood Cells 4.59 10^6/uL (4.0-5.20); Red Cell Distribution Width 14.8 % (11.8-14.3)
[2019-07-19 06:07] LABS: Calcium 7.8 mg/dL (8.5-10.1); Potassium 3.9 mmol/L (3.5-5.1)
[2019-07-19 06:10] LABS: BUN/Creatinine Ratio 22.4
[2019-07-19 06:12] LABS: INR 1.04 (0.9-1.15); Partial Thromboplastin Time 28.2 sec (23.64-32.05)
--- NOTE | 2019-07-19 07:28 | NUR ---
ENDORSED CARE TO DAY NURSE PT APPEARS TO BE RESTING. NO S/S OF RESPIRATORY DISTRESS.
[2019-07-19 07:40] VITALS: BP 110/57
--- NOTE | 2019-07-19 07:45 | NUR ---
OPENING SHIFT NOTE: Received report from NOC RNHossein. Assumed care of patient. Received patient lying in bed, no S/S of distress noted. Patient is A&Ox4, denies pain. Patient on bedside monitor with alarms in place. Patient on RA with O2 sats >94%. Patient able to turn self and use bedpan. Patient with PIV to LAC #18 and L hand #22, both flush and are patent. Bed in lowest position, rails x2 up and call light within reach. Updated on plan of care. Will continue to monitor q1hr/PRN.
[2019-07-19] MEDS: FAMOTIDINE 20 MG TAB PO SCH (09:51)
[2019-07-19] MEDS: ASPirin 81 mg TAB PO SCH (09:51)
[2019-07-19] MEDS: METOPROLOL TARTRATE 25 MG TAB PO SCH ×2 (09:51→22:00)
--- NOTE | 2019-07-19 09:54 | NUR ---
Medicated patient with 1000 medications. Verified patient and five rights. Patient explained rationale and side effects for each medication and verbalized understanding. Patient tolerated medications without any difficulty.
--- NOTE | 2019-07-19 10:47 | NUR ---
Dr Arango and Dr Hatfield to see patient. Orders received.
--- NOTE | 2019-07-19 11:05 | NUR ---
Tonya Milligan RN at bedside to speak with patient. Addendum: 07/19/19 at 1335 by NICK HALLMAN RN Per Tonya, will return around 2pm to Facetime with family discussion about upcoming surgery.
[2019-07-19] MEDS ORDERED: ceFAZolin 1GM/50ML 50 ML IV ONE (11:15)
[2019-07-19] MEDS ORDERED: VANCOMYCIN 1GM/250ML 250 ML IV ONE (11:15)
[2019-07-19] MEDS ORDERED: ACCU-CHEK COMFORT CURVE STRIP VI ONE (11:15)
[2019-07-19 11:35] VITALS: BP 116/58
--- NOTE | 2019-07-19 13:00 | NUR ---
Patient sitting up in bed eating lunch and talking on phone to family. No S/S of distress. Will continue to monitor.
[2019-07-19] MEDS: ACETAMINOPHEN 500 MG TAB PO PRN (13:43)
--- NOTE | 2019-07-19 14:30 | NUR ---
T/C from Dr Rahman. concerned about patient's tooth ache. RN inquired with patient when did tooth ache start, patient states yesterday. Patient also states that pain has stayed the same and has not increased. RN visualized tooth in question. Noted fillings in place. No swelling from gum line or drainage noted. Updated Dr Rahman. aware. No orders given.
--- NOTE | 2019-07-19 15:00 | NUR ---
Tonya Bonilla, at bedside to speak with patient and her family via phone regarding surgery and to provide patient educational video.
--- NOTE | 2019-07-19 15:11 | NUR ---
NUTRITION ASSESSMENT NOTES Please refer to link notes of nutrition screen form filed under the intervention section of the plan of care for further details. Est. Energy Needs: 6802-9095 kcal (20-25 kcal/kg BW). Est. Protein Needs: 71-78 gms/day (71-78 gms/kg BW). Will continue to monitor pertinent labs and reassess nutrient need prn Addendum: 07/19/19 at [address] Amended: Links added.
--- NOTE | 2019-07-19 15:21 | NUR ---
assessment Patient is a 73 year old female who is alert and oriented. Patients cognitive abilities are intact. Prior to admission patient lived home with family and functioned independently. Patient informed me she is able to care for her own ADLs. Per patient she will return home to her prior living arrangements post discharge and family will transport her home. Patient has a fww, shower chair, and bedside commode for home use. Patients PCP is Dr Jiang. Patient will have CABG in the AM. Patient will need home home for PT on discharge. Patient will also need a rollator on discharge. Patient informed me she will have good family support on discharge. Patient feels safe returning home on discharge.I informed patient she has a right to speak to a social human services assistants regarding all care. I informed patient she has a right to participate in any and all discharge planning. Patient does not have a POA and advanced directive. I have offered patient information on POA and advanced directives. I informed the patient the advantages and benefits of having an Advanced Directive. Patient verbalized understanding and agreed to discharge plan. Addendum: 07/19/19 at 1524 by Tonya RAINES Amended: Links added.
[2019-07-19 15:37] VITALS: BP 136/72
--- NOTE | 2019-07-19 16:15 | NUR ---
Patient sitting out of bed up in chair. Consents signed for surgery. Questions answered. Will continue to monitor.
--- NOTE | 2019-07-19 18:56 | NUR ---
END OF SHIFT NOTE: Patient sitting up in bed after eating dinner. No S/S of distress. Patient remains A&Ox4 and denies pain. Patient on bedside monitor with alarms in place. Patient to be NPO after MN for open heart surgery tomorrow morning with Dr Rahman. Report to be given to oncoming RN.
--- NOTE | 2019-07-19 19:30 | NUR ---
Opening Shift Note Assumed care of patient, awake and alert. Breathing on RA, even and nonlabored, no coughing, No S/S of distress/SOB or pain. 18G NS lock at left AC flushed well, will d/s later. 22G saline lock at left hand, CDI site, flushed well. Bed in low position, call light within reach, all alarms are audible, fall and safety precaution in place. Instructed on POC and to call for assist PRN, will continue to monitor for changes Q1hr and PRN.
--- NOTE | 2019-07-19 19:40 | NUR ---
Elimination Pt called for BSC and urination. Standby assist for ambulation from bed to BSC, stable gait. Pt able to wiped self. Pt voided clear yellowish urine. Continue care.
[2019-07-19 20:00] VITALS: BP 114/41
--- NOTE | 2019-07-19 20:35 | NUR ---
Pre and post op education/ IS pre-op 1400ml Education and instruction given to patient regarding open heart surgery, including post operative activities and exercise. IS and deep breathing exercise instructed. Patient did 1200 - 1400ml, good breathe holding. All questions and concerns answered, Pt verbalized understanding.
[2019-07-19] MEDS: cefTRIAXone 1GM/50ML D5W 50 ML IV SCH (20:41)
[2019-07-19] MEDS: MUPIROCIN 2% OINT 15gm or 22gm TOP SCH (20:41)
[2019-07-19] MEDS ORDERED: MUPIROCIN 2% OINT 15gm or 22gm TOP SCH (21:00)
--- NOTE | 2019-07-19 21:20 | NUR ---
Desaturation while sleeping/ snoring POX decreased on RA high 80's%, while Pt was sleeping and snoring. Put on O2NC 2LPM, will continue to monitor.
[2019-07-19] MEDS: ATORVASTATIN 20 MG TAB PO SCH (21:36)
[2019-07-19] MEDS ORDERED: ASCORBIC ACID 500 MG TAB PO ONE ×2 (22:00)
[2019-07-20] VITALS (50 sets, daily range): BP systolic 24–187; BP diastolic 10–79
--- NOTE | 2019-07-20 | NUR ---
Condition update Pt sleeping well, VSS. POX stable while sleeping after put O2NC 2LPM on. Reminded Pt about NPO, Pt aware. Continue care.
--- NOTE | 2019-07-20 01:30 | NUR ---
Condition update/ pain Pt called for BSC and urination. Pt able to wiped self. Pt c/o pain 9/10 at right jaw, tooth. Denied chest pain, VSS, no sweating. Will administer Morphine for pain as order. Aircraft Avionics Technician at bedside for am LAB. Continue care.
[2019-07-20] MEDS ORDERED: CHLORHEXIDINE 4% TOPICAL soln 118ml TOP ONE (02:00)
[2019-07-20] MEDS: MORPHINE SULF INJ 2 MG/ML SYRINGE 1ML IV PRN ×2 (02:08→21:22)
[2019-07-20 03:05] LABS: Basophils # (auto) 0.1 10 ^3/uL (0-0.2); Basophils % (auto) 0.9 % (0.0-2.0); Eosinophils # (auto) 0.5 10 ^3/uL (0-0.8); Eosinophils % (auto) 4.6 % (0.0-7.0); Hematocrit 41.6 % (36.0-46.0); Hemoglobin 13.5 g/dL (12.2-16.2); Lymphocytes # (auto) 3.5 10 ^3/uL (0.4-5.4); Lymphocytes % (auto) 35.3 % (10.0-50.0); Mean Corpuscular Hemoglobin 27.3 pg (28.0-32.0); Mean Corpuscular Hgb Conc. 32.5 g/dL (32.0-36.0); Mean Corpuscular Volume 84.1 fL (80.0-100.0); Monocytes # (auto) 0.7 10 ^3/uL (0-1.3); Monocytes % (auto) 7.4 % (0.0-12.0); Neutrophils # (auto) 5.2 10 ^3/uL (1.6-8.6); Neutrophils % (auto) 51.8 % (37.0-80.0); Nucleated Red Blood Cells % 0.1 %; Platelet Count (auto) 250 10^3/uL (140-450); Red Blood Cells 4.94 10^6/uL (4.0-5.20); Red Cell Distribution Width 14.9 % (11.8-14.3)
[2019-07-20 03:16] LABS: INR 1.01 (0.9-1.15); Partial Thromboplastin Time 27.8 sec (23.64-32.05)
[2019-07-20 03:19] LABS: Albumin 2.7 g/dL (3.4-5.0); BUN/Creatinine Ratio 17.5; Calcium 8.4 mg/dL (8.5-10.1); Potassium 4.4 mmol/L (3.5-5.1)
[2019-07-20 03:22] LABS: Bilirubin, Total 0.4 mg/dL (0.2-1.0); Total Protein 6.9 g/dL (6.4-8.2)
--- NOTE | 2019-07-20 03:30 | NUR ---
Shaved/ Patient bathe/linen change Pre-op cleaning for CABG. Shaved all hairs below neck to toe. Patient given complete bath with Betasept surgical scrub. Skin integrity assessed for any changes, no new changes. Complete linens changed. Patient turned by self, tolerated well. Equipment provided, Pt brushed by self and and swish with CHG mouth wash. Shampooed done with a shampoo cap, Pt rubbed / cleaned hairs by self. Hair combed through.
[2019-07-20] MEDS ORDERED: PAPAVERINE HCL 60 MG/2 ML 2ML VIAL ONE (05:57)
[2019-07-20] MEDS ORDERED: NEOMYCIN-BACITRACIN-POLYM 15GM TOP OINT TOP ONE (05:57)
[2019-07-20] MEDS ORDERED: HEPARIN 1,000 UNITS/ml 1ML VIAL ONE (05:57)
[2019-07-20] MEDS ORDERED: ceFAZolin 1GM/50ML 50 ML IV ONE (06:00)
--- NOTE | 2019-07-20 06:25 | NUR ---
To OR AccCheck 86mg/dl. Latest v/s in front of the chart. Pt transferred to OR by hospital bed with die keeper, 3 presser lines, Vancomycin, Ancef, 5 pumps, with 2 nurses accompanied. Pt's condition and v/s stable, no c/o pain.
[2019-07-20] MEDS ORDERED: BACITRACIN INJ 50000 UNIT VIAL ONE (06:33)
--- NOTE | 2019-07-20 06:37 | NUR ---
Report given to OR nurse on the phone.
[2019-07-20] MEDS: MUPIROCIN 2% OINT 15gm or 22gm TOP SCH ×2 (06:43→20:59)
[2019-07-20] MEDS ORDERED: NITROGLYCERIN 50MG/250ML 250 ML IV ONE (06:52)
[2019-07-20] MEDS ORDERED: CHLORHEXIDINE 0.12% ORAL rinse 473ML MT ONE ×2 (07:00→11:15)
[2019-07-20] MEDS ORDERED: PROPOFOL 10 MG/ML 20 ML IV ONE (07:36)
[2019-07-20] MEDS ORDERED: ROCURONIUM 10MG/ML 10ML VIAL IV ONE (07:36)
[2019-07-20] MEDS ORDERED: ACCU-CHEK COMFORT CURVE STRIP VI ONE (08:00)
[2019-07-20] MEDS ORDERED: AMINOCAPROIC ACID 5 GM in SODIUM CHL 0.9% 250 ML IV ONE (08:00)
[2019-07-20] MEDS ORDERED: AMINOCAPROIC ACID 10 GM in SODIUM CHL 0.9% 100 ML IV ONE (08:00)
[2019-07-20] MEDS ORDERED: PHENYLEPHRINE INJ 20 MG in SODIUM CHL 0.9% 250 ML IV ONE (08:00)
[2019-07-20] MEDS ORDERED: EPINEPHrine HCL 4 MG in D5W 5% 250 ML IV ONE (08:00)
[2019-07-20] MEDS ORDERED: HEPARIN 30000 UNITS in SODIUM CHLORIDE 0.9% 1000 ML IV ONE (08:00)
[2019-07-20] MEDS ORDERED: InsuLIN R (HUMAN) 100 UNITS in SODIUM CHL 0.9% 99 ML IV ONE (08:00)
[2019-07-20] MEDS ORDERED: NOREPINEPHRINE 8 MG/250ML KIT 250 ML IV ONE (08:00)
[2019-07-20] MEDS ORDERED: PLASMA-LYTE A pH7.4 5,000 ML INJ ONE (08:13)
[2019-07-20] MEDS ORDERED: ALBUMIN 25% 300 ML IV ONE (08:13)
[2019-07-20] MEDS ORDERED: MANNITOL 20 % (20GM/100ML) 500 ML IV ONE (08:14)
[2019-07-20] MEDS ORDERED: fentaNYL CITRATE 100 MCG/2 ML VL ONE ×2 (08:28→12:05)
[2019-07-20] MEDS ORDERED: fentaNYL CITRATE 5 ML ONE (09:15)
[2019-07-20] MEDS ORDERED: phytonadione 1 ML ONE (09:21)
[2019-07-20] MEDS ORDERED: POTASSIUM CHL 2MEQ/ML 20ML IV ONE (09:45)
[2019-07-20] MEDS ORDERED: CALCIUM CHLOR(10%) 100MG/ML 10ML SYRINGE IV ONE (09:45)
[2019-07-20] MEDS ORDERED: PHENYLEPHRINE HCL 10 MG/ML VL IV ONE (09:45)
[2019-07-20] MEDS ORDERED: ADENOSINE 6 MG/2 ML INJ IV ONE (09:45)
[2019-07-20] MEDS ORDERED: LIDOCAINE HCL 100 MG/5ML (2%) SYRG INJ IV ONE (09:45)
[2019-07-20] MEDS ORDERED: SODIUM BICARBONATE 8.4 % INJ 50ML VIAL IV ONE (09:45)
[2019-07-20] MEDS ORDERED: FUROSEMIDE 20 MG/2 ML VIAL IV ONE (09:45)
[2019-07-20] MEDS ORDERED: HEPARIN SODIUM (PORCINE) 5000 UNITS/ML 1ML VIAL SC ONE (09:45)
[2019-07-20] MEDS: FAMOTIDINE 20 MG TAB PO SCH (10:00)
[2019-07-20] MEDS: METOPROLOL TARTRATE 25 MG TAB PO SCH ×2 (10:00→22:34)
[2019-07-20] MEDS: ASPirin 81 mg TAB PO SCH (10:00)
[2019-07-20 12:48] LABS: Basophils # (auto) 0 10 ^3/uL (0-0.2); Eosinophils # (auto) 0.1 10 ^3/uL (0-0.8); Eosinophils % (auto) 0.6 % (0.0-7.0); Monocytes # (auto) 0.1 10 ^3/uL (0-1.3)
[2019-07-20 13:08] LABS: Basophils % (auto) 0.2 % (0.0-2.0); Hematocrit 18.9 % (36.0-46.0); Lymphocytes % (auto) 8.6 % (10.0-50.0); Mean Corpuscular Hemoglobin 27.3 pg (28.0-32.0); Mean Corpuscular Hgb Conc. 32.9 g/dL (32.0-36.0); Mean Corpuscular Volume 83.2 fL (80.0-100.0); Monocytes % (auto) 0.6 % (0.0-12.0); Neutrophils # (auto) 10.5 10 ^3/uL (1.6-8.6); Platelet Count (auto) 249 10^3/uL (140-450); Red Blood Cells 2.27 10^6/uL (4.0-5.20); Red Cell Distribution Width 14.4 % (11.8-14.3); White Blood Cell 11.6 10^3/uL (4.4-10.8)
[2019-07-20 13:10] LABS: Hemoglobin 6.2 g/dL (12.2-16.2); INR 1.38 (0.9-1.15); Partial Thromboplastin Time 30.4 sec (23.64-32.05)
[2019-07-20 13:12] LABS: Albumin 2.8 g/dL (3.4-5.0); Calcium 7.8 mg/dL (8.5-10.1); Potassium 3.7 mmol/L (3.5-5.1)
[2019-07-20 13:15] LABS: Bilirubin, Total 0.6 mg/dL (0.2-1.0); Total Protein 5.1 g/dL (6.4-8.2)
[2019-07-20] MEDS: NITROGLYCERIN 50MG/250ML 250 ML IV SCH ×2 (13:45→21:54)
--- NOTE | 2019-07-20 13:45 | NUR ---
Pt. arrived from [facility] accompanied by cardiothoracic team on hemodynamic monitoring. Report received from anesthesiologist and Dr. Rahman. Surgery: Cabg x 3. Endoscopic Vein [place] to left groin and medial knee. Lines: PA catheter around 53cm at the Hub of the Dual lumen [place]is to the right internal jugular. PA catheter withdrawal by to 47 cm at hub. [place] to left radial artery. Pacer wires: ventricular, connected to pacer, on standby. Pacemaker check performed, captured and paced correctly. Chest Tube: Left pleural and mediastinal connected to single atrium. [place]: 16 F, clear yellow, patent, secured below bladder. ET tube: 8.5, 22 CM lip line Gtts: Nitro, NS, Levophed Hemodynamics: CO/CI: 4.1/2.4 HR: 81 BP:121/69 MAP: 90 CVP: 11 PAP: 28/15 SVR: 1577 SVO2: 68% SPO2: 100% Immediate Post- Op recovery Pt arrived to ICU hemodynamically stable, connected to ventilator and bedside monitor. All lines calibrated and zero'd. Physical assessment complete. Bed locked in lowest position.
[2019-07-20] MEDS: MILRINONE 20MG/100ML 100 ML IV SCH (13:53)
[2019-07-20] MEDS: NOREPINEPHRINE 8 MG/250ML KIT 250 ML IV SCH (13:53)
[2019-07-20] MEDS ORDERED: D5W/SOD CHL 0.45% 1,000 ML IV SCH (13:53)
[2019-07-20] MEDS ORDERED: INSULIN DRIP 100 UNIT/100ML 100 ML IV SCH (13:53)
[2019-07-20] MEDS: PHENYLEPHRINE IV 250 ML IV SCH (13:53)
[2019-07-20] MEDS ORDERED: PROPOFOL 100 ML IV SCH (13:53)
[2019-07-20] MEDS ORDERED: PROPOFOL 100 ML IV ONE (13:54)
[2019-07-20] MEDS: ALBUTEROL SULF 2.5 MG/0.5ML(0.5%) NEB SOLN NEB SCH ×3 (14:00→22:00)
[2019-07-20] MEDS: ACCU-CHEK COMFORT CURVE STRIP VI SCH ×10 (14:00→23:00)
[2019-07-20] MEDS ORDERED: MAGNESIUM SULFATE 1GM/100ML 100 ML IV PRN (14:00)
[2019-07-20] MEDS ORDERED: SODIUM BICARBONATE 8.4% INJ 50ML SYRINGE IV PRN (14:00)
[2019-07-20] MEDS ORDERED: MORPHINE SULFATE 4 MG/ML SYR/VIAL IV PRN ×3 (14:00→16:00)
[2019-07-20] MEDS ORDERED: ALBUMIN 25% 250 ML IV PRN (14:00)
[2019-07-20] MEDS ORDERED: AMIODARONE HCL 150 MG in D5W 5% 100 ML IV ONE (14:00)
[2019-07-20] MEDS ORDERED: AMIODARONE HCL 900 MG in DEXTROSE 500 ML IV SCH (14:03)
[2019-07-20 14:23] LABS: Basophils # (auto) 0 10 ^3/uL (0-0.2); Basophils % (auto) 0.2 % (0.0-2.0); Eosinophils # (auto) 0 10 ^3/uL (0-0.8); Eosinophils % (auto) 0.1 % (0.0-7.0); Hematocrit 29.5 % (36.0-46.0); Hemoglobin 9.8 g/dL (12.2-16.2); Lymphocytes % (auto) 13.6 % (10.0-50.0); Mean Corpuscular Hemoglobin 27.9 pg (28.0-32.0); Mean Corpuscular Hgb Conc. 33.1 g/dL (32.0-36.0); Mean Corpuscular Volume 84.2 fL (80.0-100.0); Monocytes # (auto) 0.9 10 ^3/uL (0-1.3); Monocytes % (auto) 6.2 % (0.0-12.0); Neutrophils # (auto) 11.7 10 ^3/uL (1.6-8.6); Neutrophils % (auto) 79.9 % (37.0-80.0); Nucleated Red Blood Cells % 0.1 %; Platelet Count (auto) 224 10^3/uL (140-450); Red Blood Cells 3.51 10^6/uL (4.0-5.20); Red Cell Distribution Width 14.6 % (11.8-14.3); White Blood Cell 14.6 10^3/uL (4.4-10.8)
[2019-07-20 14:38] LABS: INR 1.2 (0.9-1.15); Partial Thromboplastin Time 29.1 sec (23.64-32.05)
[2019-07-20] MEDS: SODIUM CHLORIDE 0.9% 500 ML IV SCH (14:40)
[2019-07-20] MEDS: VANCOMYCIN 1GM/250ML 250 ML IV SCH (14:43)
[2019-07-20 14:45] LABS: Potassium 3.3 mmol/L (3.5-5.1)
--- NOTE | 2019-07-20 14:45 | NUR ---
MD VISIT: CARDIOTHORACIC at bedside assessing patient. MD aware of IV drips, chest tube output and urine output. MD wanting to consult . does not want to wean patient from ventilator unless chest tube output is 30 cc/hr or less for two hours.
--- NOTE | 2019-07-20 14:51 | NUR ---
MD VISIT: PULMONOLOGY being consulted for ventilator management. MD ordered another ABG, RT notified. MD aware of current ventilator settings.
[2019-07-20 14:52] LABS: Albumin 3.3 g/dL (3.4-5.0); BUN/Creatinine Ratio 13.7; Bilirubin, Total 1.1 mg/dL (0.2-1.0); Calcium 7.6 mg/dL (8.5-10.1); Phosphorus 2.3 mg/dL (2.5-4.90); Total Protein 5.6 g/dL (6.4-8.2)
[2019-07-20 14:57] LABS: Magnesium 4.4 mg/dL (1.6-2.6)
[2019-07-20] MEDS: POTASSIUM CHL 20MEQ/100ML 100 ML IV PRN ×5 (15:02→23:59)
--- NOTE | 2019-07-20 15:02 | NUR ---
ELECTROLYTE REPLACEMENT Potassium level 3.3, replacement being administered per protocol.
--- NOTE | 2019-07-20 16:15 | NUR ---
MD UPDATE called for update. MD aware of vitals, C.I./C.O., IV drips, urine and chest tube output. No new orders received at this time. Will continue to monitor.
--- NOTE | 2019-07-20 16:20 | NUR ---
FAMILY Updated [place] on patient status. All questions and concerns addressed. Patient daughter plans to come visit tomorrow morning.
[2019-07-20] MEDS: ceFAZolin 1GM/50ML 50 ML IV SCH ×2 (16:23→21:54)
[2019-07-20] MEDS: CALCIUM GLUC 4.65meq/50ml D5AE 50 ML IV PRN ×2 (16:56→18:15)
--- NOTE | 2019-07-20 17:00 | NUR ---
MD UPDATE Spoke with regarding 's wishes to wait one more hour until cpap trial if chest tube output is less than 30cc. MD aware, cpap orders received.
--- NOTE | 2019-07-20 17:12 | NUR ---
MD VISIT: NEUROLOGY at bedside assessing patient. Patient opens eyes to painful stimuli. Vitals remain stable at this time.
--- NOTE | 2019-07-20 18:12 | NUR ---
SEDATION Sedation titrated off for cpap trial.
--- NOTE | 2019-07-20 18:30 | NUR ---
CPAP Patient awake and alert. Patient able to follow simple commands, denies pain. Patient placed on Cpap trial. Tolerating well at this time. Vitals remain stable.
--- NOTE | 2019-07-20 18:43 | NUR ---
RESP NOTE: PER MD PLACED PT ON CPAP TRIAL. PEEP +5 PS 8. PT WAS ABLE TO NOD HEAD TO CONFIRM UNDERSTANDING. RN AT BEDSIDE. ABG AND SPONTANEOUS PARAMETERS TO FOLLOW.
--- NOTE | 2019-07-20 19:00 | NUR ---
OUTPUTS Kwan: 1925 Chest tube:210
--- NOTE | 2019-07-20 19:12 | NUR ---
REPORT Report given to Kendy SINHA, care endorsed.
--- NOTE | 2019-07-20 20:00 | NUR ---
PT EXTUBATED ORDERED. PT EXTUBATED AND PLACED ON 10L AEROSOL MASK 60% FIO2. PT ENCOURAGED TO COUGH BUT HAS WEAK EFFORT. WILL MONITOR CLOSELY.
--- NOTE | 2019-07-20 20:01 | NUR ---
NGUYỄN RINCON Spoke with Dr. Ortiz regarding weaning parameters, per rylee RINCON to henrique. Jessica RT aware. Addendum: 07/21/19 at 0017 by Kendy Horta RN ERROR: spoke with Dr. Ortiz at 1945.
[2019-07-20] MEDS: AMIODARONE HCL 900 MG in DEXTROSE 500 ML IV SCH (20:03)
--- NOTE | 2019-07-20 20:08 | NUR ---
Patient extubated without issue, placed on cool aerosol mask. Vital signs stable.
[2019-07-20] MEDS: fentaNYL CITRATE 100 MCG/2 ML VL IV PRN ×2 (20:19→23:47)
[2019-07-20] MEDS: cefTRIAXone 1GM/50ML D5W 50 ML IV SCH (20:54)
[2019-07-20 21:49] LABS: Basophils # (auto) 0 10 ^3/uL (0-0.2); Eosinophils # (auto) 0 10 ^3/uL (0-0.8); Hematocrit 28.3 % (36.0-46.0); Hemoglobin 9.5 g/dL (12.2-16.2); Lymphocytes # (auto) 0.6 10 ^3/uL (0.4-5.4); Lymphocytes % (auto) 4.8 % (10.0-50.0); Mean Corpuscular Hemoglobin 28.2 pg (28.0-32.0); Mean Corpuscular Hgb Conc. 33.5 g/dL (32.0-36.0); Mean Corpuscular Volume 84.1 fL (80.0-100.0); Monocytes # (auto) 0.7 10 ^3/uL (0-1.3); Monocytes % (auto) 5.9 % (0.0-12.0); Neutrophils # (auto) 11.1 10 ^3/uL (1.6-8.6); Neutrophils % (auto) 89.3 % (37.0-80.0); Platelet Count (auto) 264 10^3/uL (140-450); Red Blood Cells 3.37 10^6/uL (4.0-5.20); Red Cell Distribution Width 14.6 % (11.8-14.3); White Blood Cell 12.5 10^3/uL (4.4-10.8)
[2019-07-20] MEDS: CHLORHEXIDINE 0.12% ORAL rinse 473ML MT SCH (21:54)
--- NOTE | 2019-07-20 22:05 | NUR ---
Patient tolerating ice chips at this time, no swallowing issues noted. No coughing/choking present, HOB elevated to high fowlers during swallow eval.
[2019-07-20 22:09] LABS: BUN/Creatinine Ratio 8.1; Calcium 7.9 mg/dL (8.5-10.1); Magnesium 3.2 mg/dL (1.6-2.6); Phosphorus 1.3 mg/dL (2.5-4.90)
[2019-07-20] MEDS: ATORVASTATIN 20 MG TAB PO SCH (22:34)
[2019-07-20] MEDS: HYDROcodone-ACET 5/325MG TAB PO PRN (22:34)
--- NOTE | 2019-07-20 22:39 | NUR ---
Replacing potassium per protocol; see eMAR.
[2019-07-20] MEDS: ONDANSETRON HCL 4 MG/2 ML VIAL IV PRN (23:05)
--- NOTE | 2019-07-20 23:30 | NUR ---
ROUNDED: COVERING ASSIGNED RN FOR LUNCH. PATIENT RESTING IN BED WITH EYES CLOSED. INTERMITTENT GRUNTING NOTED. NO OTHER PAIN BEHAVIORS IDENTIFIED. VSS, OTHERWISE. NO NEEDS IDENTIFIED. WILL ENDORSE CARE TO BACK TO ASSIGNED RN
--- NOTE | 2019-07-20 23:45 | NUR ---
PAIN: REPORTED 10/10 "DISCOMFORT" TO MEDIASTINAL INCISION. FENTANYL IVP PRN GIVEN. ENDORSED CARE BACK TO ASSIGNED RN
[2019-07-20] MEDS: SOD CHL 0.45% 1,000 ML IV SCH (23:49)
[2019-07-21] VITALS (59 sets, daily range): BP systolic 30–159; BP diastolic 12–89
[2019-07-21] MEDS: ACCU-CHEK COMFORT CURVE STRIP VI SCH ×11 (00:03→22:23)
[2019-07-21] MEDS: POTASSIUM CHL 20MEQ/100ML 100 ML IV PRN (00:50)
[2019-07-21] MEDS: MORPHINE SULF INJ 2 MG/ML SYRINGE 1ML IV PRN ×4 (01:22→18:35)
[2019-07-21] MEDS: VANCOMYCIN 1GM/250ML 250 ML IV SCH ×2 (01:59→14:25)
[2019-07-21] MEDS: MILRINONE 20MG/100ML 100 ML IV SCH ×2 (02:06→14:19)
--- NOTE | 2019-07-21 02:35 | NUR ---
BIPAP FIO2 TITRATED TO 50% POX 99%
--- NOTE | 2019-07-21 03:00 | NUR ---
PT REMOVED FROM BIPAP AND PLACED ON 5L OXYMIZER. POX 95% WILL MONITOR CLOSELY.
[2019-07-21] MEDS: fentaNYL CITRATE 100 MCG/2 ML VL IV PRN ×2 (03:36→21:36)
--- NOTE | 2019-07-21 03:51 | NUR ---
Full CHG bath given, linens changed, AM EKG done. Patient tolerated activity fairly. Vital signs stable.
[2019-07-21 04:41] LABS: Basophils # (auto) 0 10 ^3/uL (0-0.2); Eosinophils # (auto) 0 10 ^3/uL (0-0.8); Hematocrit 28.5 % (36.0-46.0); Hemoglobin 9.5 g/dL (12.2-16.2); Lymphocytes # (auto) 1.8 10 ^3/uL (0.4-5.4); Lymphocytes % (auto) 11.4 % (10.0-50.0); Mean Corpuscular Hemoglobin 28.2 pg (28.0-32.0); Mean Corpuscular Hgb Conc. 33.3 g/dL (32.0-36.0); Mean Corpuscular Volume 84.8 fL (80.0-100.0); Monocytes # (auto) 1.1 10 ^3/uL (0-1.3); Monocytes % (auto) 7.2 % (0.0-12.0); Neutrophils # (auto) 12.5 10 ^3/uL (1.6-8.6); Neutrophils % (auto) 81.4 % (37.0-80.0); Nucleated Red Blood Cells % 0.1 %; Platelet Count (auto) 237 10^3/uL (140-450); Red Blood Cells 3.36 10^6/uL (4.0-5.20); Red Cell Distribution Width 14.8 % (11.8-14.3); White Blood Cell 15.4 10^3/uL (4.4-10.8)
[2019-07-21 05:04] LABS: BUN/Creatinine Ratio 12.7; Calcium 7.6 mg/dL (8.5-10.1); Magnesium 2.6 mg/dL (1.6-2.6); Phosphorus 2.1 mg/dL (2.5-4.90); Potassium 4.8 mmol/L (3.5-5.1)
[2019-07-21] MEDS: ceFAZolin 1GM/50ML 50 ML IV SCH ×4 (05:42→22:12)
[2019-07-21] MEDS ORDERED: SENNA 8.6 MG TAB PO PRN (06:15)
[2019-07-21] MEDS ORDERED: DEXTROSE (50%) 50ML SYRG IV PRN ×2 (06:15→06:45)
[2019-07-21] MEDS ORDERED: BISACODYL 10 MG RECT SUPP PR PRN (06:15)
--- NOTE | 2019-07-21 06:15 | NUR ---
Spoke with Dr. Rahman, new orders received. [place] DC'd, cordis remains in place. Arterial line DC'd, pressure dressing applied.
[2019-07-21] MEDS: ALBUTEROL SULF 2.5 MG/0.5ML(0.5%) NEB SOLN NEB SCH ×5 (06:26→22:09)
[2019-07-21] MEDS: MUPIROCIN 2% OINT 15gm or 22gm TOP SCH (06:38)
--- NOTE | 2019-07-21 07:16 | NUR ---
Report given to ERNESTINE Boggs.
--- NOTE | 2019-07-21 07:25 | NUR ---
INITIAL ASSESSMENT Report received from Kendy SINHA, care assumed. Patient is awake, alert, and oriented. Patient able to follow simple commands, denies pain at this time. Afebrile. Pulses are palpable radial and pedal. Vitals remain stable at this time. Patient oxygenating well on Oxymizer, o2 sat97%. Denies shortness of breath. Patient c/o sore throat, tolerating ice chips without difficulty swallowing. Mediastinal and left pleural chest tubes connected to single atrium, patent, secures, and no air leak present. See skin/wound assessment and IV spreadsheet. Bed locked in lowest position with call light within reach. Patient instructed to call for assistance, patient verbalized understanding. Will continue to monitor.
[2019-07-21] MEDS: FUROSEMIDE 20 MG TAB PO SCH ×2 (07:34→17:55)
--- NOTE | 2019-07-21 08:45 | NUR ---
ACTIVITY Patient move to sit on edge of bed with moderate assistance. Non-slip socks placed on feet. Patient then stood and ambulated to chair at bedside with standby assistance from two RN. Patient tolerated activity fair, vitals remain stable. Patient eating breakfast. All personal belongings and call light within reach. Patient instructed to call for assistance, pt verbalized understanding.
[2019-07-21] MEDS: SOD CHL 0.45% 1,000 ML IV SCH ×2 (09:00→19:00)
[2019-07-21] MEDS ORDERED: POTASSIUM CHL 20 Meq TABLET PO SCH (10:00)
[2019-07-21] MEDS ORDERED: PANTOPRAZOLE 40 MG/10 ML VIAL INJ IV SCH (10:00)
[2019-07-21] MEDS: ASPirin 81 mg TAB PO SCH (10:00)
[2019-07-21] MEDS: ASCORBIC ACID 500 MG TAB PO SCH ×2 (10:00→22:23)
[2019-07-21] MEDS: METOPROLOL TARTRATE 25 MG TAB PO SCH ×2 (10:00→22:23)
[2019-07-21] MEDS ORDERED: MILK OF MAGNESIA 30ML SUSP PO PRN (10:00)
[2019-07-21] MEDS: FAMOTIDINE 20 MG TAB PO SCH (10:00)
[2019-07-21] MEDS: POTASSIUM EFFERVESENT TAB 25 MEQ PO SCH ×2 (10:00→22:13)
[2019-07-21] MEDS: DOCUSATE SOD 100 MG CAP PO SCH ×2 (10:00→22:23)
--- NOTE | 2019-07-21 10:00 | NUR ---
FAMILY Patient daughters at bedside. Updated on plan of care and status.
--- NOTE | 2019-07-21 10:00 | NUR ---
MEDICATION PO potassium held due to am lab k:4.8.
[2019-07-21] MEDS: CHLORHEXIDINE 0.12% ORAL rinse 473ML MT SCH ×2 (10:01→22:23)
[2019-07-21] MEDS: NITROGLYCERIN 0.4MG/HR TOPICAL PATCH TD SCH (10:02)
[2019-07-21] MEDS: InsuLIN REG 1unit/0.01ml Soln (100units/ml) SC SCH ×4 (10:25→22:24)
--- NOTE | 2019-07-21 10:39 | NUR ---
PAIN Patient medicated with PRN morphine for chest/back pain 11/09. Will continue to monitor and reassess.
--- NOTE | 2019-07-21 11:48 | NUR ---
ACTIVITY Patient ambulated with one lap around nursing station accompanied by two Physical therapist, walker and portable oxygen. Patient tolerated well. Patient c/o when sitting down. Patient stated pain subsides at rest. Patient connected to bedside monitor. Call light within reach. Will continue to monitor.
[2019-07-21] MEDS ORDERED: IRON SUCROSE COMPLEX 200 MG in SODIUM CHL 0.9% 100 ML IV SCH (12:00)
--- NOTE | 2019-07-21 12:38 | NUR ---
INCENTIVE SPIROMETER Patient educated on proper use of IS, patient verbalized understanding. Patient performed IS ten times, best effort reaching 500cc. Patient instructed to perform IS ten times each hour. Patient verbalized understanding.
[2019-07-21] MEDS: NOREPINEPHRINE 8 MG/250ML KIT 250 ML IV SCH (13:53)
[2019-07-21] MEDS: SODIUM CHLORIDE 0.9% 500 ML IV SCH (13:53)
[2019-07-21] MEDS: PHENYLEPHRINE IV 250 ML IV SCH (13:53)
--- NOTE | 2019-07-21 14:05 | NUR ---
MD VISIT: PULMONOLOGY rounding on patient. MD reviewing medical record and CXR.
--- NOTE | 2019-07-21 15:01 | NUR ---
MD VISIT: CARDIOTHORACIC at bedside talking with patient. MD updated on labs, CXR, Chest tube output, and medications. New orders received.
--- NOTE | 2019-07-21 16:07 | NUR ---
D/C Planning Per consult for a 4 wheel walker. Order was faxed to requesting for DME to be deliver to bedside. Per Lucero with Ph:) DME will be deliver to bedside. Faxed order to [facility] requesting authorization for SG. Per Tejal with [facility] authorization for 4 wheel walker is [id number]. Addendum: 07/21/19 at 1610 by JULIETTE LUO Amended: Links added.
--- NOTE | 2019-07-21 16:24 | NUR ---
ACTIVITY Patient ambulated with one lap around nursing station accompanied by RN, walker and portable oxygen, 8 L Oxymizer. Patient tolerated fair. Patient connected to bedside monitor. Call light within reach. Will continue to monitor.
--- NOTE | 2019-07-21 16:30 | NUR ---
MD VISIT: CARDIOLOGY at bedside speaking with patient.
[2019-07-21] MEDS: HYDROcodone-ACET 5/325MG TAB PO PRN (16:31)
--- NOTE | 2019-07-21 16:35 | NUR ---
CHEST TUBE Large clot in mediastinal chest tube, clot removed and now patents and draining. Patient denies discomfort. Vital signs remain stable. There was a clot noted in left pleural but unable to remove at this time. Will continue to monitor chest tube output.
--- NOTE | 2019-07-21 16:45 | NUR ---
INCISIONAL CARE Chest tube and endoscopic incision sites cleansed and new dressings applied. Patient tolerated well. No signs of bleeding.
--- NOTE | 2019-07-21 17:00 | NUR ---
OXYGENATION Patient o2 level increased to 10L on Oxymizer, patient was only maintaining o2 sat 88-89%. Patient denies shortness of breath and does not appear to have increase in work of breathing. notified of increase oxygen requirement. New orders received.
--- NOTE | 2019-07-21 18:00 | NUR ---
OUTPUTS MICHELLE: 300 CHEST TUBE: 200
[2019-07-21] MEDS: ACETYLCYSTEINE 10 %(100MG/ML) SOL 4ML NEB SCH (18:18)
--- NOTE | 2019-07-21 19:23 | NUR ---
REPORT Report given to Radha SINHA, care endorsed.
[2019-07-21] MEDS: AMIODARONE HCL 900 MG in DEXTROSE 500 ML IV SCH (21:08)
[2019-07-21] MEDS: cefTRIAXone 1GM/50ML D5W 50 ML IV SCH (21:11)
[2019-07-21] MEDS: ATORVASTATIN 20 MG TAB PO SCH (22:21)
[2019-07-22] VITALS (55 sets, daily range): BP systolic 92–144; BP diastolic 45–81
[2019-07-22] MEDS: MILRINONE 20MG/100ML 100 ML IV SCH ×2 (01:54→14:45)
[2019-07-22] MEDS: ACCU-CHEK COMFORT CURVE STRIP VI SCH ×6 (01:55→21:30)
[2019-07-22] MEDS: InsuLIN REG 1unit/0.01ml Soln (100units/ml) SC SCH ×6 (01:55→21:30)
[2019-07-22] MEDS: VANCOMYCIN 1GM/250ML 250 ML IV SCH (01:56)
[2019-07-22] MEDS: HYDROcodone-ACET 5/325MG TAB PO PRN ×2 (03:16→12:02)
[2019-07-22 04:00] LABS: Basophils # (auto) 0 10 ^3/uL (0-0.2); Eosinophils # (auto) 0 10 ^3/uL (0-0.8); Hematocrit 27.7 % (36.0-46.0); Hemoglobin 8.9 g/dL (12.2-16.2); Lymphocytes % (auto) 14.7 % (10.0-50.0); Mean Corpuscular Hemoglobin 27.8 pg (28.0-32.0); Mean Corpuscular Hgb Conc. 32.3 g/dL (32.0-36.0); Mean Corpuscular Volume 86.2 fL (80.0-100.0); Monocytes # (auto) 1.4 10 ^3/uL (0-1.3); Monocytes % (auto) 6.8 % (0.0-12.0); Neutrophils # (auto) 16.1 10 ^3/uL (1.6-8.6); Neutrophils % (auto) 78.5 % (37.0-80.0); Nucleated Red Blood Cells % 0.1 %; Platelet Count (auto) 195 10^3/uL (140-450); Red Blood Cells 3.21 10^6/uL (4.0-5.20); Red Cell Distribution Width 15.8 % (11.8-14.3); White Blood Cell 20.5 10^3/uL (4.4-10.8)
[2019-07-22 04:18] LABS: Calcium 7.7 mg/dL (8.5-10.1); Potassium 4.2 mmol/L (3.5-5.1)
[2019-07-22 04:19] LABS: % Iron Saturation 30.9 % (15-50)
[2019-07-22] MEDS: SOD CHL 0.45% 1,000 ML IV SCH ×2 (05:38→23:05)
[2019-07-22] MEDS: fentaNYL CITRATE 100 MCG/2 ML VL IV PRN (05:40)
[2019-07-22] MEDS: ACETYLCYSTEINE 10 %(100MG/ML) SOL 4ML NEB SCH ×3 (06:05→22:10)
[2019-07-22] MEDS: ceFAZolin 1GM/50ML 50 ML IV SCH (06:05)
[2019-07-22] MEDS: ALBUTEROL SULF 2.5 MG/0.5ML(0.5%) NEB SOLN NEB SCH ×5 (06:05→22:10)
[2019-07-22] MEDS: FUROSEMIDE 20 MG TAB PO SCH ×2 (06:05→17:28)
--- NOTE | 2019-07-22 07:30 | NUR ---
REPORT RECEIVED, PATIENT IN CHAIR IN AFIB WITH RVR, AMIODARONE BOLUS GIVEN AND WILL START GTT PER OPEN HEART PROTOCOL. OTHER VS STABLE. DENIES ANY PAIN AND NO S/S RESPIRATORY DISTRESS.
--- NOTE | 2019-07-22 07:45 | NUR ---
BACK TO BED
[2019-07-22] MEDS: METOPROLOL TARTRATE 50 MG TAB PO SCH ×3 (09:30→21:30)
[2019-07-22] MEDS ORDERED: dilTIAZem 25 MG/5 ML VIAL IV ONE (09:45)
--- NOTE | 2019-07-22 09:45 | NUR ---
DR CASTANEDA AT BEDSIDE, DR AWARE PATIENT WENT INTO AFIB RVR AND ON AMIODARONE GTT PER OPEN HEART PROTOCOL. DR GAVE NEW ORDERS.
[2019-07-22] MEDS: NITROGLYCERIN 0.4MG/HR TOPICAL PATCH TD SCH (10:00)
--- NOTE | 2019-07-22 10:20 | NUR ---
PLACED PT ON BIPAP. PT CURRENTLY WITH AFIB, SCHEDULED 1000 ALBUTEROL MEDNEB TX HELD AT THIS TIME. ERNESTINE WHITE IS AWARE. PT TOLERATING BIPAP WELL, LAYING COMFORTABLY IN BED, NO S/S OF RESPIRATORY DISTRESS NOTED. ALARMS SET AND AUDIBLE. WILL CONTINUE TO MONITOR.
--- NOTE | 2019-07-22 11:05 | NUR ---
OFF BIPAP TOOK PT OFF BIPAP, PLACED ON OXYMIZER 7LPM, SPO2 97%. PT TOLERATED WELL. NO S/S OF RESPIRATORY DISTRESS NOTED AT THIS TIME. WILL RETURN FOR NEXT SCHEDULED TX.
[2019-07-22] MEDS: CHLORHEXIDINE 0.12% ORAL rinse 473ML MT SCH ×2 (12:00→21:30)
[2019-07-22] MEDS: ASCORBIC ACID 500 MG TAB PO SCH ×2 (12:02→21:30)
[2019-07-22] MEDS: FAMOTIDINE 20 MG TAB PO SCH (12:02)
[2019-07-22] MEDS: DOCUSATE SOD 100 MG CAP PO SCH ×2 (12:03→21:30)
[2019-07-22] MEDS: ASPirin 81 mg TAB PO SCH (12:03)
[2019-07-22] MEDS: POTASSIUM EFFERVESENT TAB 25 MEQ PO SCH ×2 (12:03→21:30)
--- NOTE | 2019-07-22 12:25 | NUR ---
DR ECHEVERRIA AT BEDSIDE
[2019-07-22] MEDS: ONDANSETRON HCL 4 MG/2 ML VIAL IV PRN (12:45)
--- NOTE | 2019-07-22 13:00 | NUR ---
OOB TO CHAIR WITH PT ASSIST
[2019-07-22] MEDS: AMIODARONE HCL 900 MG in DEXTROSE 500 ML IV SCH (13:30)
[2019-07-22] MEDS: IRON SUCROSE COMPLEX 200 MG in SODIUM CHL 0.9% 100 ML IV SCH (13:59)
--- NOTE | 2019-07-22 14:06 | NUR ---
Respiratory note: PT REFUSING SCHEDULED 1400 MEDNEB/BIPAP TX, FEELING NAUSEOUS AND HAS BEEN VOMITTING. PT SITTING IN CHAIR, NO S/S OF RESPIRATORY DISTRESS NOTED AT THIS TIME. ADVISED PT TO CALL FOR RT IF SHE FEELS BETTER AND WANTS THE TX. ERNESTINE WHITE AWARE. WILL CONTINUE TO MONITOR.
[2019-07-22] MEDS ORDERED: PROMETHAZINE HCL 25 MG/ML 1ML IV PRN (15:00)
[2019-07-22] MEDS: Glucerna Carbsteady SHAKE Vanilla 8oz PO SCH ×2 (15:10→18:37)
[2019-07-22] MEDS: NOREPINEPHRINE 8 MG/250ML KIT 250 ML IV SCH (15:10)
[2019-07-22] MEDS: PHENYLEPHRINE IV 250 ML IV SCH (15:10)
[2019-07-22] MEDS: SODIUM CHLORIDE 0.9% 500 ML IV SCH (15:12)
--- NOTE | 2019-07-22 15:30 | NUR ---
DR MYRICK AT BEDSIDE EXAMINED PATIENT
--- NOTE | 2019-07-22 16:00 | NUR ---
BACK TO BED FROM CHAIR WITH PT ASSIST, ENCOURAGED INCENTIVE SPIROMETER, LUNG SOUNDS EXPIRATORY CRACKLES IN BILATERAL BASES, TEACHING PROVIDED ON IS/PNA PREVENTION. PATIENT VERBALIZED UNDERSTANDING
--- NOTE | 2019-07-22 16:50 | NUR ---
DR LANGE AT BEDSIDE
--- NOTE | 2019-07-22 19:20 | NUR ---
REPORT GIVEN TO PIERO SINHA
--- NOTE | 2019-07-22 19:48 | NUR ---
OPENING NOTE: A&OX4. PLEASANT AND COOPERATIVE. STATES SHE IS "EXHAUSTED." NSR WITH BBB 70-80s, SBP 90-110s. 6L OXYMIZER. LS CTA, DIMINISHED TO BASES. EVEN AND UNLABORED BREATHING. INTERMITTENTLY TAKES SHALLOW BREATHS. FAIR COUGH, INTERMITTENTLY PRODUCTIVE, LEFT PLEURAL AND MEDIASTINAL CHEST TUBE TO - 20 CM H20, SEROSANG DRAINAGE, DRESSING CDI, NO CREPITUS OR AIR LEAK NOTED. ABD SOFT. HYPOACTIVE BS. +FLATUS. LBM 07/16. REPORTS INTERMITTENT NAUSEA BUT NONE AT THIS TIME. DENIES DISCOMFORT FROM NO BOWEL MOVEMENT. REPORTS NO APPETITE. MICHELLE PATENT AND INTACT DRAINING CLEAR YELLOW/LIGHT RAY URINE. SKIN GROSSLY INTACT SEE SKIN AND WOUND FLOWSHEET FOR ASSESSMENT. RIGHT IJ CORDIS, CDI, AND PATENT WITH BLOOD RETURN. LEFT HAND AND AND AC PIV, CDI AND PATENT WITH BLOOD RETURN. REPORTS "DISCOMFORT" TO CHEST BUT NOT PAIN. DENIES SHORTNESS OF BREATH, CHEST PAIN, NAUSEA/VOMITING, NUMBNESS AND TINGLING. REINFORCED POC: MAINTAINED PATIENT SAFETY. BED LOCKED AND IN THE LOWEST POSITION. FREQUENT VISUAL CHECKS. IN NAD AT THIS TIME. WILL CONT CARE
[2019-07-22] MEDS: ATORVASTATIN 20 MG TAB PO SCH (21:30)
--- NOTE | 2019-07-22 21:30 | NUR ---
PRE-MEDICATED WITH PHENERGAN IVP PRN FOR NAUSEA AND BIPAP MED NEBS.
--- NOTE | 2019-07-22 22:00 | NUR ---
DRESSING CHANGED AND INCISION CARE PERFORMED BY MARCELINA AT 1730 - DRESSINGS STILL CDI Addendum: 07/22/19 at 5885 by Nicole Noriega RN RN Amended: Links added.
--- NOTE | 2019-07-22 22:30 | NUR ---
NO NAUSEA BEHAVIORS IDENTIFIED
[2019-07-22] MEDS: cefTRIAXone 1GM/50ML D5W 50 ML IV SCH (23:15)
--- NOTE | 2019-07-22 23:23 | NUR ---
BP IN HIGH 80s, SLEEPING WITH ARM WITH BP CUFF ELEVATED - TURNED OFF AMIODARONE DRIP
[2019-07-23] VITALS (33 sets, daily range): BP systolic 83–136; BP diastolic 39–76
--- NOTE | 2019-07-23 00:28 | NUR ---
ROUNDED: SLEEPING. EVEN AND UNLABORED BREATHING. VSS OTHERWISE. AMIODARONE GTT REMAINS OFF.
[2019-07-23] MEDS: SOD CHL 0.45% 1,000 ML IV SCH (01:00)
[2019-07-23] MEDS: ACCU-CHEK COMFORT CURVE STRIP VI SCH ×4 (02:00→22:00)
[2019-07-23] MEDS: InsuLIN REG 1unit/0.01ml Soln (100units/ml) SC SCH ×4 (02:00→22:00)
[2019-07-23] MEDS: MILRINONE 20MG/100ML 100 ML IV SCH ×2 (02:58→15:11)
--- NOTE | 2019-07-23 02:58 | NUR ---
ROUNDED: SLEEPING. EVEN AND UNLABORED BREATHING, SpO2>95% 6L OXYMIZER. VSS OTHERWISE. WILL CONT CARE
[2019-07-23] MEDS: HYDROcodone-ACET 5/325MG TAB PO PRN ×2 (03:19→10:35)
[2019-07-23] MEDS: ONDANSETRON HCL 4 MG/2 ML VIAL IV PRN (03:19)
--- NOTE | 2019-07-23 03:20 | NUR ---
REPORTS "CHEST DISCOMFORT" - NORCO PRN AND ZOFRAN PRN GIVEN
--- NOTE | 2019-07-23 04:20 | NUR ---
SLEEPING, NO PAIN BEHAVIORS IDENTIFIED
[2019-07-23 04:23] LABS: Basophils # (auto) 0.1 10 ^3/uL (0-0.2); Basophils % (auto) 0.4 % (0.0-2.0); Eosinophils # (auto) 0 10 ^3/uL (0-0.8); Hematocrit 26.5 % (36.0-46.0); Hemoglobin 8.6 g/dL (12.2-16.2); Lymphocytes # (auto) 4.6 10 ^3/uL (0.4-5.4); Lymphocytes % (auto) 24.5 % (10.0-50.0); Mean Corpuscular Hemoglobin 28.1 pg (28.0-32.0); Mean Corpuscular Hgb Conc. 32.6 g/dL (32.0-36.0); Mean Corpuscular Volume 86.4 fL (80.0-100.0); Monocytes # (auto) 1.1 10 ^3/uL (0-1.3); Monocytes % (auto) 5.9 % (0.0-12.0); Neutrophils # (auto) 12.9 10 ^3/uL (1.6-8.6); Neutrophils % (auto) 69.2 % (37.0-80.0); Nucleated Red Blood Cells % 0.1 %; Platelet Count (auto) 185 10^3/uL (140-450); Red Blood Cells 3.07 10^6/uL (4.0-5.20); Red Cell Distribution Width 15.2 % (11.8-14.3); White Blood Cell 18.6 10^3/uL (4.4-10.8)
[2019-07-23 04:40] LABS: Calcium 7.4 mg/dL (8.5-10.1); Potassium 4.3 mmol/L (3.5-5.1)
[2019-07-23 04:42] LABS: BUN/Creatinine Ratio 31.7
--- NOTE | 2019-07-23 05:05 | NUR ---
SBP IN HIGH 80s - PATIENT SLEEPING ON SIDE NOTED WITH ARMS CURLED UP
[2019-07-23] MEDS: FUROSEMIDE 20 MG TAB PO SCH ×2 (06:00→18:30)
--- NOTE | 2019-07-23 06:01 | NUR ---
PATIENT REQUESTING TO DEFER BATHING UNTIL LATER
--- NOTE | 2019-07-23 06:01 | NUR ---
INCISION CARE: LEFT ANKLE ENDOSCOPIC SITE: REMOVED PREVIOUS DRESSING. SCANT DRAINAGE. INCISION WELL APPROXIMATED, NO ECCHYMOSIS NOTED. CLEANSED WITH CHLORAPREP SWAB. LET AIR DRY. COVERED WITH GENTLE OPTIFOAM. LEFT KNEE ENDOSCOPIC SITE: INCISION WELL APPROXIMATED. NO ECCHYMOSIS NOTED. CLEANSED WITH CHLORAPREP SWAB. LET AIR DRY. LEFT OPEN TO AIR. CHEST TUBE SITE: REMOVED PREVIOUS DRESSING. NO BREAKTHROUGH NOTED. SUTURES INTACT. CLEANSED WITH CHLORAPREP SWABS. LET AIR DRY. WRAPPED WITH VASELINE GAUZE. COVERED WITH 4X4 GAUZE AND SECURED WITH MEDIPORE TAPE.
--- NOTE | 2019-07-23 06:07 | NUR ---
APPLIED KORTNEY TRIANAE
[2019-07-23] MEDS: ACETYLCYSTEINE 10 %(100MG/ML) SOL 4ML NEB SCH ×3 (06:43→22:15)
[2019-07-23] MEDS: ALBUTEROL SULF 2.5 MG/0.5ML(0.5%) NEB SOLN NEB SCH ×5 (06:43→22:15)
--- NOTE | 2019-07-23 07:30 | NUR ---
REPORT AND CARE ENDORSED TO ERNESTINE MCPHERSON
[2019-07-23] MEDS: Glucerna Carbsteady SHAKE Vanilla 8oz PO SCH ×3 (08:00→18:00)
--- NOTE | 2019-07-23 09:11 | NUR ---
FAMILY PHONE CALL; Spoke with patient's daughter, Shahla; updated her on patient condition. Informed her the patient is stable, has gone back into A-fib and is also back on Amiodarone drip with a plan to transition to oral form and discontinue IV. Informed daughter that patient is currently fatigued and has requested to sleep until 1000 when medications are due. Shahla states that he brother is on his way to visit, discussed with her that due to the Covid-19 outbreak the hospital has a strict no visiting policy and at this time only end of life visitation is permitted. Shahla verbalized understanding and states that she will attempt to contact her brother.
--- NOTE | 2019-07-23 10:15 | NUR ---
ACTIVITY: PT at bedside, patient assisted with transfer to chair. Tolerated well.
[2019-07-23] MEDS: CHLORHEXIDINE 0.12% ORAL rinse 473ML MT SCH ×2 (11:35→22:00)
[2019-07-23] MEDS: ASPirin 81 mg TAB PO SCH (11:59)
[2019-07-23] MEDS: DOCUSATE SOD 100 MG CAP PO SCH ×2 (11:59→22:00)
[2019-07-23] MEDS: METOPROLOL TARTRATE 50 MG TAB PO SCH ×2 (12:00→22:00)
[2019-07-23] MEDS: ASCORBIC ACID 500 MG TAB PO SCH ×2 (12:00→22:00)
[2019-07-23] MEDS: POTASSIUM EFFERVESENT TAB 25 MEQ PO SCH ×2 (12:00→22:00)
[2019-07-23] MEDS: AMIODARONE HCL 200 MG TAB PO SCH ×2 (12:00→22:00)
[2019-07-23] MEDS: FAMOTIDINE 20 MG TAB PO SCH (12:00)
[2019-07-23] MEDS: NITROGLYCERIN 0.4MG/HR TOPICAL PATCH TD SCH (12:01)
[2019-07-23] MEDS ORDERED: DEXTROSE (50%) 50ML SYRG IV PRN (12:45)
[2019-07-23] MEDS: IRON SUCROSE COMPLEX 200 MG in SODIUM CHL 0.9% 100 ML IV SCH (13:00)
[2019-07-23] MEDS: NOREPINEPHRINE 8 MG/250ML KIT 250 ML IV SCH (13:53)
[2019-07-23] MEDS: PHENYLEPHRINE IV 250 ML IV SCH (13:53)
[2019-07-23] MEDS: SODIUM CHLORIDE 0.9% 500 ML IV SCH (13:53)
--- NOTE | 2019-07-23 14:58 | NUR ---
Respiratory note: PT REFUSED BREATHING TX VIA BIPAP, BUT RECEIVED IT VIA NEBULIZER/ MASK. PT STATED SHE WOULD RECEIVE BREATHING TX VIA BIPAP DURING NEXT SCHEDULED TX.
--- NOTE | 2019-07-23 16:00 | NUR ---
ACTIVITY: Patient ambulated around nursing station x 1 and 1/4 laps. Returned to room, requested to return to bed assisted patient to bed.
--- NOTE | 2019-07-23 19:40 | NUR ---
Opening Shift Note: A&Ox4, resting in bed. Currently on 6LO2 via oxymizer; does not wear oxygen at home, pain level 0/10, and at baseline ambulates independently without assistive devices; currently moderate assist with wheeled walker. Bed locked in lowest position, side rails up x2, call light within reach, and bed alarm on for patient safety. IV 18 to left AC IID inserted on 07/12/19; left hand 22 g IID inserted on 07/18/19; right IJ double lumen inserted on 07/20/19. Patient is s/p LHC with Dr. Sadler on 07/14/19; [facility] with carotid stent placement to right internal carotid artery with Dr. Sadler on 07/17/19; CABG with Dr. Rahman on 07/21/19. Medial chest incision: aquasel dressing CDI; medial chest tubes x2 with strawberry color output; left groin incision PLANNING AIDE with ecchymosis to medial left thigh; left ankle incision: optifoam CDI; left knee incision optifoam CDI. POC discussed and questions answered. Patient does not want to ambulate at this time. Patient agreed to ambulate at 0500 with linen change and bath. Will continue to round and reposition prn.
[2019-07-23] MEDS: AMIODARONE HCL 900 MG in DEXTROSE 500 ML IV SCH (20:03)
[2019-07-23] MEDS: cefTRIAXone 1GM/50ML D5W 50 ML IV SCH (21:00)
[2019-07-23] MEDS: ATORVASTATIN 20 MG TAB PO SCH (22:00)
[2019-07-24] VITALS (41 sets, daily range): BP systolic 96–141; BP diastolic 48–93
[2019-07-24] MEDS ORDERED: TEMAZEPAM 15 MG CAP PO PRN (01:00)
[2019-07-24] MEDS: MILRINONE 20MG/100ML 100 ML IV SCH ×2 (03:24→15:37)
[2019-07-24 05:29] LABS: Hematocrit 27.1 % (36.0-46.0); Hemoglobin 8.8 g/dL (12.2-16.2); Mean Corpuscular Hemoglobin 28.1 pg (28.0-32.0); Mean Corpuscular Hgb Conc. 32.5 g/dL (32.0-36.0); Mean Corpuscular Volume 86.3 fL (80.0-100.0); Platelet Count (auto) 224 10^3/uL (140-450); Red Blood Cells 3.14 10^6/uL (4.0-5.20); Red Cell Distribution Width 14.9 % (11.8-14.3); White Blood Cell 19.7 10^3/uL (4.4-10.8)
[2019-07-24 05:35] LABS: Band Neutrophils % (manual) 0; Basophils % (manual) 0 (0.0-2.0); Blast Cells 0; Metamyelocytes % 0; Myelocytes % 0; Promyelocytes % 0; Reactive Lymphocytes 0
[2019-07-24 05:46] LABS: BUN/Creatinine Ratio 28.8; Calcium 7.4 mg/dL (8.5-10.1); Magnesium 2.6 mg/dL (1.6-2.6); Potassium 4.3 mmol/L (3.5-5.1)
--- NOTE | 2019-07-24 06:00 | NUR ---
Activity: Patient ambulated x1 lap around unit. HR was stable in the 90s but O2 level decreased to mid 80s. Patient set up for breakfast in chair after ambulation.
[2019-07-24] MEDS: FUROSEMIDE 20 MG TAB PO SCH ×2 (06:15→18:19)
[2019-07-24 06:25] LABS: Eosinophils % (manual) 2 (0-7); Lymphocytes % (manual) 17 (10.0-50.0); Monocytes % (manual) 2 (0-12)
[2019-07-24] MEDS: ACCU-CHEK COMFORT CURVE STRIP VI SCH ×4 (07:00→22:02)
[2019-07-24] MEDS: InsuLIN REG 1unit/0.01ml Soln (100units/ml) SC SCH ×4 (07:00→22:00)
[2019-07-24] MEDS: ALBUTEROL SULF 2.5 MG/0.5ML(0.5%) NEB SOLN NEB SCH ×5 (07:04→22:00)
[2019-07-24] MEDS: ACETYLCYSTEINE 10 %(100MG/ML) SOL 4ML NEB SCH ×2 (07:05→14:02)
[2019-07-24] MEDS: Glucerna Carbsteady SHAKE Vanilla 8oz PO SCH ×3 (08:00→18:19)
--- NOTE | 2019-07-24 08:00 | NUR ---
MD Dr. Alexander at bedside updated on patient condition with no new orders received. MD spoke to patient regarding plan of care and questions/concerns answered by MD.
[2019-07-24] MEDS: DOCUSATE SOD 100 MG CAP PO SCH ×2 (10:00→21:56)
[2019-07-24] MEDS: METOPROLOL TARTRATE 50 MG TAB PO SCH ×2 (10:00→22:01)
[2019-07-24] MEDS: NITROGLYCERIN 0.4MG/HR TOPICAL PATCH TD SCH (10:00)
--- NOTE | 2019-07-24 10:00 | NUR ---
AMBULATION Patient ambulated around unit X1, patient tolerated well.
[2019-07-24] MEDS: CHLORHEXIDINE 0.12% ORAL rinse 473ML MT SCH ×2 (10:24→21:56)
[2019-07-24] MEDS: POTASSIUM EFFERVESENT TAB 25 MEQ PO SCH ×2 (10:34→22:01)
[2019-07-24] MEDS: HYDROcodone-ACET 5/325MG TAB PO PRN (10:34)
[2019-07-24] MEDS: ASCORBIC ACID 500 MG TAB PO SCH ×2 (10:35→22:01)
[2019-07-24] MEDS: FAMOTIDINE 20 MG TAB PO SCH (10:35)
[2019-07-24] MEDS: ASPirin 81 mg TAB PO SCH (10:35)
[2019-07-24] MEDS: AMIODARONE HCL 200 MG TAB PO SCH ×2 (10:35→22:00)
--- NOTE | 2019-07-24 12:30 | NUR ---
MD Dr. Rahman at bedside updated on patient condition with new orders, MD spoke to patient regarding plan of care and questions/concerns answered by MD. Dr. Rahman discontinued chest tubes and pacer wires. Patient tolerated well.
[2019-07-24] MEDS: PHENYLEPHRINE IV 250 ML IV SCH (13:53)
[2019-07-24] MEDS: NOREPINEPHRINE 8 MG/250ML KIT 250 ML IV SCH (13:53)
[2019-07-24] MEDS: SODIUM CHLORIDE 0.9% 500 ML IV SCH (13:53)
--- NOTE | 2019-07-24 14:24 | NUR ---
RN IS AMBULATING PATIENT. PT IS DOING WELL. WITH ATTEMPT TO SEE PATIENT TOMORROW.
--- NOTE | 2019-07-24 19:30 | NUR ---
Opening Shift Note: A&Ox4, resting in bed. Currently on 6LO2 via oxymizer; does not wear oxygen at home, pain level 0/10, and at baseline ambulates independently without assistive devices; currently moderate assist with wheeled walker. Bed locked in lowest position, side rails up x2, call light within reach, and bed alarm on for patient safety. IV 18 to left AC IID inserted on 07/12/19; left hand 22 g IID inserted on 07/18/19; right IJ double lumen inserted on 07/20/19. Patient is s/p LHC with Dr. Sadler on 07/14/19; C with carotid stent placement to right internal carotid artery with Dr. Sadler on 07/17/19; CABG with Dr. Rahman on 07/21/19. Medial chest incision: PIETRO with no drainage present; medial chest tubes removed today, 4x4 gauze and medipore dressing CDI; left groin incision IMAGING TECHNOLOGIST with ecchymosis to medial left thigh; left ankle incision: optifoam CDI; left knee incision PIETRO. POC discussed and questions answered. Patient does not want to ambulate at this time. Patient agreed to ambulate a with linen change and bath. Will continue to round and reposition prn.
[2019-07-24] MEDS: AMIODARONE HCL 900 MG in DEXTROSE 500 ML IV SCH (19:42)
[2019-07-24] MEDS: cefTRIAXone 1GM/50ML D5W 50 ML IV SCH (21:56)
--- NOTE | 2019-07-24 22:00 | NUR ---
All dressings/wounds changed and cleansed per orders.
[2019-07-24] MEDS: ATORVASTATIN 20 MG TAB PO SCH (22:01)
--- NOTE | 2019-07-24 22:08 | NUR ---
Respiratory note: PT REQUESTED NOT TO BE WOKEN UP FOR HER NEXT SCHEDULED MED NEB/BIPAP TREATMENT. PT STATED SHE FEELS SO TIRED AND WOULD LIKE TO GET SOME SLEEP. TREATMENT HELD AT THIS TIME. NO DISTRESS NOTED, PT WAS SLEEPING WHEN ENTERING THE ROOM. HR 77 RR 17 POX 96%
[2019-07-25] VITALS (22 sets, daily range): BP systolic 107–159; BP diastolic 53–78
[2019-07-25] MEDS ORDERED: ALUM & MAG HYDROX-SIMETH LIQ(MAALOX) 30 ML PO ONE (00:30)
[2019-07-25] MEDS: ONDANSETRON HCL 4 MG/2 ML VIAL IV PRN (00:54)
[2019-07-25 03:49] LABS: Hematocrit 28.2 % (36.0-46.0); Hemoglobin 9.3 g/dL (12.2-16.2); Mean Corpuscular Hemoglobin 28.4 pg (28.0-32.0); Mean Corpuscular Hgb Conc. 32.9 g/dL (32.0-36.0); Mean Corpuscular Volume 86.3 fL (80.0-100.0); Platelet Count (auto) 258 10^3/uL (140-450); Red Blood Cells 3.26 10^6/uL (4.0-5.20); White Blood Cell 18.6 10^3/uL (4.4-10.8)
[2019-07-25] MEDS: MILRINONE 20MG/100ML 100 ML IV SCH (03:50)
[2019-07-25 04:41] LABS: Band Neutrophils % (manual) 0; Basophils % (manual) 0 (0.0-2.0); Blast Cells 0; Myelocytes % 0; Promyelocytes % 0; Reactive Lymphocytes 0
--- NOTE | 2019-07-25 05:30 | NUR ---
Patient bathe/linen change Patient given complete CHG bath. Skin integrity assessed for any changes. Linens and gown changed. Patient repositioned in chair.
[2019-07-25] MEDS: ACCU-CHEK COMFORT CURVE STRIP VI SCH (05:50)
[2019-07-25] MEDS: FUROSEMIDE 20 MG TAB PO SCH ×2 (05:50→17:36)
[2019-07-25] MEDS: InsuLIN REG 1unit/0.01ml Soln (100units/ml) SC SCH (05:50)
[2019-07-25] MEDS: ALBUTEROL SULF 2.5 MG/0.5ML(0.5%) NEB SOLN NEB SCH ×5 (06:00→19:56)
--- NOTE | 2019-07-25 06:00 | NUR ---
Activity: Patient ambulated around unit x2 laps on 6LO2 via NC. Patient HR sustained in the 90s and oxygen saturation did sustain from 82-88%. Patient did not state the presence of shortness of breath, pain, or chest discomfort. After ambulation, patient set up in chair for breakfast. Patient overall tolerated activity very well. Pace improvement from yesterday. After sitting in chair, oxygen saturation did increase to the mid/high 90s on 6LO2 via NC.
[2019-07-25 06:07] LABS: Eosinophils % (manual) 1 (0-7); Lymphocytes % (manual) 21 (10.0-50.0); Metamyelocytes % 1; Monocytes % (manual) 8 (0-12)
--- NOTE | 2019-07-25 06:27 | NUR ---
RT NOTE: PT REFUSED TX AT THIS TIME. NO SIGNS OF RESPIRATORY DISTRESS NOTED AT THIS TIME. PT IS UP IN CHAIR AFTER WALKING AROUND ICU WITH RN. PT ON 4L NC AT THIS TIME DUE TO MILD DESATURATION DURING WALKING. SPO2 93 HR 81 RR 24. PT AWARE THAT I WILL RETURN FOR NEXT SCHEDULED TX. WILL CONTINUE TO MONITOR.
[2019-07-25] MEDS: Glucerna Carbsteady SHAKE Vanilla 8oz PO SCH ×3 (08:00→17:37)
--- NOTE | 2019-07-25 08:48 | NUR ---
MEÑO STAPLES HERE TO SEE PATIENT. SEE NOTES AND EMR FOR ANY NEW ORDERS.
--- NOTE | 2019-07-25 08:55 | NUR ---
DR. JAVED HERE TO SEE PATIENT. SEE MD NOTES AND EMR FOR ANY NEW ORDERS.
[2019-07-25] MEDS: CHLORHEXIDINE 0.12% ORAL rinse 473ML MT SCH ×2 (09:55→22:38)
[2019-07-25] MEDS: FAMOTIDINE 20 MG TAB PO SCH (09:55)
[2019-07-25] MEDS: AMIODARONE HCL 200 MG TAB PO SCH ×2 (09:56→22:38)
[2019-07-25] MEDS: DOCUSATE SOD 100 MG CAP PO SCH ×2 (09:56→22:38)
[2019-07-25] MEDS: POTASSIUM EFFERVESENT TAB 25 MEQ PO SCH ×2 (09:56→22:39)
[2019-07-25] MEDS: ASPirin 81 mg TAB PO SCH (09:56)
[2019-07-25] MEDS: METOPROLOL TARTRATE 50 MG TAB PO SCH ×2 (09:56→22:39)
[2019-07-25] MEDS: ASCORBIC ACID 500 MG TAB PO SCH ×2 (09:56→22:39)
--- NOTE | 2019-07-25 10:17 | NUR ---
PATIENT AMBULATED PATIENT AMBULATED AROUND NURSES STATION 2 TIMES WITH PT. TOLERATED WELL.
--- NOTE | 2019-07-25 10:43 | NUR ---
RT NOTE: PT REFUSED TX AGAIN. NO SIGNS OF RESPIRATORY DISTRESS NOTED AT THIS TIME. PT IS STILL SITTING IN CHAIR. ON 2L NC SPO2 95 HR 73 RR 20. PT AWARE THAT I WILL RETURN FOR NEXT SCHEDULED TX. WILL CONTINUE TO MONITOR.
--- NOTE | 2019-07-25 11:57 | NUR ---
DR. FARMER HERE TO SEE PATIENT. SEE MD NOTES AND EMR FOR ANY NEW ORDERS.
[2019-07-25] MEDS ORDERED: levoFLOXacin 250 MG TAB PO ONE (12:00)
[2019-07-25] MEDS: FERROUS SULFATE 325 MG TAB PO SCH ×2 (13:21→17:36)
[2019-07-25] MEDS: SODIUM CHLORIDE 0.9% 500 ML IV SCH (13:53)
--- NOTE | 2019-07-25 13:54 | NUR ---
RIGHT CENTRAL LINE WITH DOUBLE LUMEN AND CORDIS REMOVED. PATIENT TOLERATED WELL, NO BLEEDING NOTED.
--- NOTE | 2019-07-25 14:32 | NUR ---
RT NOTE: PT REFUSED 3RD TX OF THE DAY. NO SIGNS OF RESPIRATORY DISTRESS NOTED AT THIS TIME. ON 2L SPO2 99 HR 79 RR 22. LUNG SOUNDS CLEAR/DIMINISHED. PT AWARE THAT RESPIRATORY WILL RETURN FOR NEXT SCHEDULED TX. WILL CONTINUE TO MONITOR.
--- NOTE | 2019-07-25 15:43 | NUR ---
Nutrition Follow-up Notes Wt.: 81.0 kg per staff estimate. Pt currently on 2g Na diet with poor PO intake aeb avg 29% per spiral runner. Noted pt also to receive Glucerna Shake TID. Will continue to monitor pertinent labs and reassess nutrient needs prn. Est. Energy Needs: 8307-4545 kcal (20-25 kcal/kg BW). Est. Protein Needs: 71-78 gms/day (71-78 gms/kg BW). Labs 07/23: Cl 109 H, Cr 0.52 L, Ca 7.4 L Skin: Esvin scale 16, mod risk, chest tube insertion L medial chest per spiral runner. GI: Pt had BM 07/25/19 per spiral runner. PES: 1) Altered nutrition related lab values r/t current medical condition aeb hypocalcemia, hypoalbuminemia 2) Inadequate energy intake r/t decreased appetite aeb avg PO intake 70% Will continue to monitor PO intake, pertinent labs, skin status and weight trends. F/u in 3 to 5 days. Additional Recommendation: 1) Consider to continue monitoring pertinent labs. If Albumin continues trending down, consider Prostat 1 pkt BID. 2) Continue close supervision and feeding assistance prn during meals. 3) Continue current plan of care.
--- NOTE | 2019-07-25 15:56 | NUR ---
D/C Planning Axle Inspector consult regarding 4 wheel walker, Home Health for safety evaluation, physical therapy, medication management and vitals. Regarding 4 wheel walker order was completed on 07/21/2019. Placed followed up called to , spoke to Debbie. Per Debbie with [facility] authorization provided from [facility] was for a regular walker. Placed followed up called to Tejal with [facility] advised her order for 4 wheel walker was not included on the authorization that was faxed to . Per Tejal new authorization for SG is [id number]. Placed a followed up called to Debbie with [facility]. Advised Debbie with [facility] to deliver walker to bedside. Per Debbie with [facility] 4 wheel walker [facility]. Faxed clinical information to [facility]. Per Shruthi with [facility] information received and services to start within 24/48hrs upon discharge. Faxed order to [facility] requesting authorization for home health. Per Tejal with [facility] authorization for home health is [id number]. Nurse Joanna was informed of d/c plan.
--- NOTE | 2019-07-25 19:20 | NUR ---
Opening Shift Note: A&Ox4, resting in bed. Currently on 2LO2 via NC; does not wear oxygen at home, pain level 3/10, and at baseline ambulates independently without assistive devices; currently moderate assist with wheeled walker. Bed locked in lowest position, side rails up x2, call light within reach, and bed alarm on for patient safety. IV 18 to left AC IID inserted on 07/12/19. Patient is s/p LHC with Dr. Sadler on 07/14/19; C with carotid stent placement to right internal carotid artery with Dr. Sadler on 07/17/19; CABG with Dr. Rahman on 07/21/19. Medial chest incision: PIETRO with no drainage present; medial chest tubes incisions, 4x4 gauze and medipore dressing CDI; left groin incision PIETRO with ecchymosis to medial left thigh; left ankle incision: optifoam CDI; left knee incision REHABILITATION ATTENDANT; right neck scabbing from IJ removal. POC discussed and questions answered. Patient does not want to ambulate at this time. Patient agreed to ambulate a with linen change and bath. Will continue to round and reposition prn.
[2019-07-25] MEDS: HYDROcodone-ACET 5/325MG TAB PO PRN (19:30)
--- NOTE | 2019-07-25 19:30 | NUR ---
RT NOTE: PT CONTINUES TO REFUSED MED NEB TX AND BIPAP AT THIS TIME. RN AWARE. PT IN NO DISTRESS NOTED.
--- NOTE | 2019-07-25 22:00 | NUR ---
All incisions cleansed and dressing changed per order.
[2019-07-25] MEDS: ATORVASTATIN 20 MG TAB PO SCH (22:39)
[2019-07-26] VITALS (9 sets, daily range): BP systolic 97–157; BP diastolic 41–77
[2019-07-26 04:41] LABS: Hematocrit 29.7 % (36.0-46.0); Hemoglobin 9.9 g/dL (12.2-16.2); Mean Corpuscular Hemoglobin 28.6 pg (28.0-32.0); Mean Corpuscular Hgb Conc. 33.2 g/dL (32.0-36.0); Platelet Count (auto) 301 10^3/uL (140-450); Red Blood Cells 3.45 10^6/uL (4.0-5.20); Red Cell Distribution Width 15.2 % (11.8-14.3); White Blood Cell 18.5 10^3/uL (4.4-10.8)
[2019-07-26 04:53] LABS: Potassium 4.3 mmol/L (3.5-5.1)
[2019-07-26 04:55] LABS: Magnesium 2.3 mg/dL (1.6-2.6)
[2019-07-26 05:26] LABS: Band Neutrophils % (manual) 0; Basophils % (manual) 0 (0.0-2.0); Metamyelocytes % 0; Myelocytes % 0; Promyelocytes % 0; Reactive Lymphocytes 0
[2019-07-26 05:27] LABS: Blast Cells 0
--- NOTE | 2019-07-26 05:30 | NUR ---
Activity: Patient ambulated with FWW x2 laps around ICU with O2 saturation maintaining in the 90s and HR in 90s. Patient also bathed the CHG wipes and gown changed.
[2019-07-26] MEDS: FUROSEMIDE 20 MG TAB PO SCH ×2 (05:45→18:37)
--- NOTE | 2019-07-26 05:51 | NUR ---
Family notified of room change to 261: no answer from daughter Shahla and Enzo son. Messages left for both.
--- NOTE | 2019-07-26 06:10 | NUR ---
LESA downgrade: Patient transferred to room 261 with primary nurse Hossein. All belongings transported with patient, including new FWW. Patient oriented to new unit and staff.
--- NOTE | 2019-07-26 06:15 | NUR ---
PT IN [place] PHYSICAL ASSESSMENT COMPLETED, UNDER INTERVENTIONS. PT CONNECTED TO MONITOR. NO S/S OF RESPIRATORY DISTRESS. CALL LIGHT WITHIN REACH. PT ORIENTED TO ESHA SINHA. WILL CONTINUE TO MONITOR.
--- NOTE | 2019-07-26 06:16 | NUR ---
VS BP 153/77, HR 77, 02% 95, T 99.5 NO S/S DISTRESS.
[2019-07-26] MEDS: ALBUTEROL SULF 2.5 MG/0.5ML(0.5%) NEB SOLN NEB SCH ×3 (06:20→14:00)
[2019-07-26 07:03] LABS: Eosinophils % (manual) 2 (0-7); Lymphocytes % (manual) 38 (10.0-50.0); Monocytes % (manual) 7 (0-12)
[2019-07-26] MEDS: Glucerna Carbsteady SHAKE Vanilla 8oz PO SCH ×3 (08:00→18:00)
--- NOTE | 2019-07-26 08:00 | NUR ---
OPENING SHIFT NOTE: Received report from NOC RNHossein. Assumed care of patient. Received patient lying in bed, connected to bedside monitor. Patient with no s/s of distress and denies pain. Patient on 2L NC with O2 sats 97% and IS at bedside. Patient with midline sternal incision, left knee incision and left ankle incision are C/D/I. Patient able to ambulate to [facility] with walker and standby assist. Patient with PIV #18 Left AC assymptomatic and flushes well. Bed in lowest position, rails x2 up and call light within reach. Updated on plan of care. Will continue to monitor q1hr/PRN.
--- NOTE | 2019-07-26 08:10 | NUR ---
T/C from patient's daughter, Fabian. Updated daughter on patient status. Daughter to call back later this afternoon once doctors round.
[2019-07-26] MEDS: CHLORHEXIDINE 0.12% ORAL rinse 473ML MT SCH ×2 (10:00→21:17)
--- NOTE | 2019-07-26 10:30 | NUR ---
MD: Dr Arango at bedside to see patient. Orders received. Plan for possible discharge home tomorrow. Addendum: 07/26/19 at 1202 by NICK HALLMAN RN T/C from Dr Arango. Will get patient's O2 sats on RA when physical therapy walks patient to see if qualify for home O2.
[2019-07-26] MEDS: POTASSIUM EFFERVESENT TAB 25 MEQ PO SCH ×2 (10:51→21:17)
[2019-07-26] MEDS: levoFLOXacin 250 MG TAB PO SCH (10:52)
[2019-07-26] MEDS: FAMOTIDINE 20 MG TAB PO SCH (10:52)
[2019-07-26] MEDS: ASPirin 81 mg TAB PO SCH (10:52)
[2019-07-26] MEDS: DOCUSATE SOD 100 MG CAP PO SCH ×2 (10:53→21:17)
[2019-07-26] MEDS: METOPROLOL TARTRATE 50 MG TAB PO SCH ×2 (10:53→21:18)
[2019-07-26] MEDS: FERROUS SULFATE 325 MG TAB PO SCH ×3 (10:53→18:36)
[2019-07-26] MEDS: AMIODARONE HCL 200 MG TAB PO SCH (10:54)
[2019-07-26] MEDS ORDERED: CLOPIDOGREL BISULFATE 75 MG TAB PO ONE (12:15)
[2019-07-26 13:37] LABS: Urine Bacteria NONE SEEN /hpf (None Seen); Urine Blood 2+ /uL (Negative); Urine Mucus FEW (None Seen); Urine Specific Gravity 1.013 (1.001-1.035); Urine WBC 1 /hpf (0 - 5)
--- NOTE | 2019-07-26 14:12 | NUR ---
Patient ambulating around nurses station with physical therapy.
--- NOTE | 2019-07-26 14:30 | NUR ---
Patient on room air. After ambulating with physical therapy, patient O2 sats 85% but quickly returned to 95% on RA. Patient O2 sats on RA have been >92% at rest.
--- NOTE | 2019-07-26 15:08 | NUR ---
Respiratory note: PT HAS BEEN REFUSING MEDNEB TREATMENTS AND BIPAP. PT IS ON ROOM AIR AND SP02 98%. PT IS IN NO DISTRESS AT THIS TIME. SPOKE WITH DR. ECHEVERRIA AND HE APPROVED TO DISCONTINUE MEDNEBS AND BIPAP.
--- NOTE | 2019-07-26 15:41 | NUR ---
T/C from Dr Arango. Updated MD on RA sats and requested order for medication for congestion.
[2019-07-26] MEDS: guaiFENesin-DM 100/10mg/5ml SYR PO PRN (16:00)
--- NOTE | 2019-07-26 16:40 | NUR ---
Patient resting in bed. No s/s of distress. Patient feeling better after having received robtussin.
--- NOTE | 2019-07-26 18:56 | NUR ---
CLOSING SHIFT NOTE: Patient sitting up in bed, no s/s of distress. Patient denies pain. Report given to Hossein GENAO RN.
--- NOTE | 2019-07-26 19:10 | NUR ---
Opening Shift Not Patient, awake and alert. No S/S of distress/SOB or pain. Insructed on POC and to callfor assist PRN, will continue to monitor for changes Q1hr and PRN.
[2019-07-26] MEDS: ATORVASTATIN 20 MG TAB PO SCH (21:17)
--- NOTE | 2019-07-26 21:53 | NUR ---
MICHELLE DC BLADDER TRAINING ALLOWED. PT EDUCATED ON SAFETY. CALL LIGHT WITHIN REACH.
[2019-07-27] VITALS: BP 136/60
[2019-07-27 04:00] VITALS: BP 150/71
--- NOTE | 2019-07-27 04:35 | NUR ---
Pt appears to be resting VSS. NO distress noted. will continue to monitor.
[2019-07-27] MEDS: FUROSEMIDE 20 MG TAB PO SCH (05:21)
[2019-07-27 05:40] LABS: Hematocrit 32.5 % (36.0-46.0); Hemoglobin 10.6 g/dL (12.2-16.2); Mean Corpuscular Hemoglobin 28.1 pg (28.0-32.0); Mean Corpuscular Hgb Conc. 32.6 g/dL (32.0-36.0); Mean Corpuscular Volume 86.2 fL (80.0-100.0); Platelet Count (auto) 368 10^3/uL (140-450); Red Blood Cells 3.77 10^6/uL (4.0-5.20); Red Cell Distribution Width 15.3 % (11.8-14.3); White Blood Cell 18.5 10^3/uL (4.4-10.8)
--- NOTE | 2019-07-27 05:50 | NUR ---
morning labs pending.
[2019-07-27 05:54] LABS: Band Neutrophils % (manual) 0; Basophils % (manual) 0 (0.0-2.0); Blast Cells 0; Eosinophils % (manual) 0 (0-7); Metamyelocytes % 0; Myelocytes % 0; Promyelocytes % 0; Reactive Lymphocytes 0
[2019-07-27 07:08] LABS: Lymphocytes % (manual) 19 (10.0-50.0); Monocytes % (manual) 12 (0-12)
--- NOTE | 2019-07-27 07:45 | NUR ---
OPENING SHIFT NOTE: Received report from NOC RNHosseni. Assumed care of patient. Received patient lying in bed, connected to bedside monitor. Patient with no s/s of distress and denies pain. Patient on 2L NC with O2 sats 97% and IS at bedside. Patient with midline sternal incision, left knee incision and left ankle incision are C/D/I. Patient able to ambulate to [facility] with walker and standby assist. Patient with PIV #18 Left AC asymptomatic and flushes well. Bed in lowest position, rails x2 up and call light within reach. Updated on plan of care. Will continue to monitor q1hr/PRN.
[2019-07-27 08:00] VITALS: BP 141/70
[2019-07-27] MEDS: FERROUS SULFATE 325 MG TAB PO SCH ×2 (08:04→12:00)
[2019-07-27] MEDS: Glucerna Carbsteady SHAKE Vanilla 8oz PO SCH ×2 (08:05→12:00)
[2019-07-27] MEDS: guaiFENesin-DM 100/10mg/5ml SYR PO PRN (09:34)
[2019-07-27] MEDS: POTASSIUM EFFERVESENT TAB 25 MEQ PO SCH (09:35)
[2019-07-27] MEDS: DOCUSATE SOD 100 MG CAP PO SCH (09:35)
[2019-07-27] MEDS: ASPirin 81 mg TAB PO SCH (09:35)
[2019-07-27] MEDS: levoFLOXacin 250 MG TAB PO SCH (09:35)
[2019-07-27] MEDS: FAMOTIDINE 20 MG TAB PO SCH (09:35)
[2019-07-27] MEDS: METOPROLOL TARTRATE 50 MG TAB PO SCH (09:37)
[2019-07-27] MEDS: CHLORHEXIDINE 0.12% ORAL rinse 473ML MT SCH (09:41)
--- NOTE | 2019-07-27 09:43 | NUR ---
Patient given 1000 medications. Verified patient and five rights. Patient provided rationale for each medication and verbalized understanding. Patient tolerated medications without difficulty.
[2019-07-27] MEDS ORDERED: CLOPIDOGREL BISULFATE 75 MG TAB PO SCH (10:00)
--- NOTE | 2019-07-27 11:20 | NUR ---
MD: Dr Arango to see patient. Orders received.
--- NOTE | 2019-07-27 11:42 | NUR ---
MD: Dr Rahman at bedside to see patient.
[2019-07-27 11:44] VITALS: BP 129/70
--- NOTE | 2019-07-27 12:20 | NUR ---
PT at bedside walking patient around unit. Addendum: 07/27/19 at 1330 by NICK HALLMAN RN RA O2 sats after ambulation 92%. No need for RA ABG per Ximena TOMAS.
--- NOTE | 2019-07-27 13:30 | NUR ---
Patient watching post open heart discharge video.
[2019-07-27] MEDS ORDERED: DOXY-286 PO (13:35)
[2019-07-27] MEDS ORDERED: MET50T PO (13:35)
[2019-07-27] MEDS ORDERED: FURO1TAB33 PO (13:35)
[2019-07-27] MEDS ORDERED: DOCU100C8 PO (13:35)
[2019-07-27] MEDS ORDERED: CLOP75TA28 PO (13:35)
[2019-07-27] MEDS ORDERED: ATOR20TA50 PO (13:35)
[2019-07-27] MEDS ORDERED: POTA1TAB61 PO (13:35)
[2019-07-27] MEDS ORDERED: ASPI81CH43 PO (13:35)
[2019-07-27] MEDS ORDERED: PANT40TA2 PO (13:35)
[2019-07-27] MEDS ORDERED: FER325T PO (13:35)
[2019-07-27] MEDS ORDERED: SACC250C PO (13:38)
--- NOTE | 2019-07-27 13:54 | NUR ---
Spoke with patient's daughter, [place] and updated her on discharge. Daughter will be able to pick patient up around 4-430pm
[2019-07-27 14:28] VITALS: BP 129/70
--- NOTE | 2019-07-27 15:15 | NUR ---
Tonya Milligan at bedside going over some post open heart teaching instructions with patient.
[2019-07-27 15:50] VITALS: BP 140/73
--- NOTE | 2019-07-27 16:33 | NUR ---
Discharge instructions provided to patient. Awaiting patient's daughter, Fabian to bring clean clothes.
--- NOTE | 2019-07-27 17:45 | NUR ---
Patient's family arrived with clothes. Patient's dressing to chest tube sites changed and PIV removed with catheter intact. Patient escorted via wheelchair to lobby and instructions given to patient's daughter, Fabian. All questions answered.
== END 2019-07-27 18:08 | disposition home health service (06) | DRG 233 ==
LOC: ER 12:35 → EDBD 12:35 → TELE 12:36 → TELE-WESTW 21:00 → ICU WEST 07-17 21:06 → DOU IN ICU 07-18 22:10 → ICU WEST 07-20 09:49 → DOU IN ICU 07-26 06:05
PROVIDERS: ADMIT Nurse Practitioner Acute Care; ATTEND Internal Medicine
PROC: 4A023N7 Measurement of Cardiac Sampling and Pressure, Left Heart, Percutaneous Approach (ICD-10-PCS; principal; 2019-07-14)
PROC: B2111ZZ Fluoroscopy of Multiple Coronary Arteries using Low Osmolar Contrast (ICD-10-PCS; 2019-07-14)
PROC: B2151ZZ Fluoroscopy of Left Heart using Low Osmolar Contrast (ICD-10-PCS; 2019-07-14)
PROC: 037K3DZ Dilation of Right Internal Carotid Artery with Intraluminal Device, Percutaneous Approach (ICD-10-PCS; 2019-07-17)
PROC: 3E033HZ Introduction of Radioactive Substance into Peripheral Vein, Percutaneous Approach (ICD-10-PCS; 2019-07-17)
PROC: 021109W Bypass Coronary Artery, Two Arteries from Aorta with Autologous Venous Tissue, Open Approach (ICD-10-PCS; 2019-07-20)
PROC: 02100K9 Bypass Coronary Artery, One Artery from Left Internal Mammary with Nonautologous Tissue Substitute, Open Approach (ICD-10-PCS; 2019-07-20)
PROC: 06BQ4ZZ Excision of Left Saphenous Vein, Percutaneous Endoscopic Approach (ICD-10-PCS; 2019-07-20)
PROC: 30233N1 Transfusion of Nonautologous Red Blood Cells into Peripheral Vein, Percutaneous Approach (ICD-10-PCS; 2019-07-20)
PROC: 5A1221Z Performance of Cardiac Output, Continuous (ICD-10-PCS; 2019-07-20)
DX: I25.110 Atherosclerotic heart disease of native coronary artery with unstable angina pectoris (principal); I50.33 Acute on chronic diastolic (congestive) heart failure; J96.00 Acute respiratory failure, unspecified whether with hypoxia or hypercapnia; G92 Toxic encephalopathy; I16.9 Hypertensive crisis, unspecified; D62 Acute posthemorrhagic anemia; R65.10 Systemic inflammatory response syndrome (SIRS) of non-infectious origin without acute organ dysfunction; M75.32 Calcific tendinitis of left shoulder; R79.89 Other specified abnormal findings of blood chemistry; E66.9 Obesity, unspecified; E87.6 Hypokalemia; E78.5 Hyperlipidemia, unspecified; M77.9 Enthesopathy, unspecified; D72.829 Elevated white blood cell count, unspecified; I48.0 Paroxysmal atrial fibrillation; K08.89 Other specified disorders of teeth and supporting structures
CPT/HCPCS: 36415; 36600; 70450; 70498; 71045; 73030; 78452; 80048; 80053; 80061; 81001; 82533; 82805; 82962; 83036; 83540; 83550; 83735; 83880; 84100; 84132; 84443; 84484; 85007; 85014; 85018; 85025; 85027; 85610; 85730; 86141; 86850; 86900; 86901; 86920; 87070; 87081; 87086; 87205; 93005; 93017; 93306; 93458; 93886; 93970; 93975; 94002; 94640; 94660; 96365; 96375; 97110; 97116; 97163; 97530; 99152; 99153; C1751; C1768; C9113; G0378; J0153; J0610; J0690; J0696; J1644; J1756; J1815; J2250; J2405; J2440; J2704; J3430; J3480; J7060; P9047; Q9967

== ENCOUNTER → 2020-06-04 | Outpatient (CLI) | payer OTHER, MEDICAID ==
[~2020-06-04] MED LIST changes: +CLOP75TA28 PO; +DOCU100C10 PO; +FER325T PO; +FURO1TAB33 PO; -HYDR25TA4 PO; -LISI-646 PO; +MET50T PO; -METO-6 PO; +PANT40TA2 PO; -POTA-167 PO; +POTA1TAB61 PO; +SACC250C PO
[2020-06-04 12:55] LABS: Basophils # (auto) 0.1 10 ^3/uL (0-0.2); Basophils % (auto) 1.3 % (0.0-2.0); Eosinophils # (auto) 0.2 10 ^3/uL (0-0.8); Eosinophils % (auto) 1.9 % (0.0-7.0); Hematocrit 42.6 % (36.0-46.0); Hemoglobin 14.3 g/dL (12.2-16.2); Lymphocytes # (auto) 4.1 10 ^3/uL (0.4-5.4); Lymphocytes % (auto) 37.6 % (10.0-50.0); Mean Corpuscular Hemoglobin 28.7 pg (28.0-32.0); Mean Corpuscular Hgb Conc. 33.4 g/dL (32.0-36.0); Mean Corpuscular Volume 85.9 fL (80.0-100.0); Monocytes # (auto) 0.7 10 ^3/uL (0-1.3); Monocytes % (auto) 6.5 % (0.0-12.0); Neutrophils # (auto) 5.7 10 ^3/uL (1.6-8.6); Neutrophils % (auto) 52.7 % (37.0-80.0); Platelet Count (auto) 306 10^3/uL (140-450); Red Blood Cells 4.96 10^6/uL (4.0-5.20); Red Cell Distribution Width 15.8 % (11.8-14.3); White Blood Cell 10.8 10^3/uL (4.4-10.8)
[2020-06-04 13:42] LABS: Albumin 3.6 g/dL (3.4-5.0); Calcium 8.7 mg/dL (8.5-10.1); Potassium 3.6 mmol/L (3.5-5.1)
[2020-06-04 13:46] LABS: BUN/Creatinine Ratio 33.9; Bilirubin, Total 0.6 mg/dL (0.2-1.0); Total Protein 7.5 g/dL (6.4-8.2)
== END | disposition home or self-care (01) ==
LOC: LAB 12:22
PROVIDERS: ATTEND Internal Medicine
DX: I10 Essential (primary) hypertension (principal); E78.5 Hyperlipidemia, unspecified
CPT/HCPCS: 36415; 80053; 80061; 85025

== ENCOUNTER → 2020-08-07 | Outpatient (CLI) | payer OTHER, MEDICAID | END | disposition home or self-care (01) | LOC: XYW 10:28 | PROVIDERS: ATTEND Internal Medicine | DX: I25.10 Atherosclerotic heart disease of native coronary artery without angina pectoris (principal); I10 Essential (primary) hypertension; R07.9 Chest pain, unspecified | CPT/HCPCS: 93306 ==

== ENCOUNTER → 2021-10-30 | Outpatient (CLI) | payer OTHER, MEDICAID | END | disposition home or self-care (01) | LOC: XYW 09:26 | PROVIDERS: ATTEND Internal Medicine | DX: I70.0 Atherosclerosis of aorta (principal); I65.23 Occlusion and stenosis of bilateral carotid arteries; R42 Dizziness and giddiness | CPT/HCPCS: 93886 ==

== ENCOUNTER → 2021-12-25 | Outpatient (CLI) | payer OTHER, MEDICAID ==
[~2021-12-25] VITALS: Ht 154.9 cm; Wt 67.6 kg
[~2021-12-25] MED LIST changes: +ADENOSINE 57 MG in GIVE UN-DILUTED 0 ML IV ONE
== END | disposition home or self-care (01) ==
LOC: XY 09:31
PROVIDERS: ATTEND Internal Medicine
DX: R07.89 Other chest pain (principal); I25.708 Atherosclerosis of coronary artery bypass graft(s), unspecified, with other forms of angina pectoris; R06.02 Shortness of breath; I10 Essential (primary) hypertension; R42 Dizziness and giddiness; Z95.1 Presence of aortocoronary bypass graft
CPT/HCPCS: 78452; 93017; A9500; J0153

== ENCOUNTER → 2022-10-19 | Outpatient (CLI) | payer OTHER, MEDICAID ==
[~2022-10-19] MED LIST changes: -ADENOSINE 57 MG in GIVE UN-DILUTED 0 ML IV ONE; +DOCU-265 PO; -DOCU100C10 PO
[2022-10-19 10:57] LABS: Basophils # (auto) 0.1 10 ^3/uL (0-0.2); Basophils % (auto) 0.8 % (0.0-2.0); Eosinophils # (auto) 0.4 10 ^3/uL (0-0.8); Eosinophils % (auto) 2.9 % (0.0-7.0); Hematocrit 46.7 % (36.0-46.0); Hemoglobin 15.3 g/dL (12.2-16.2); Lymphocytes # (auto) 3.9 10 ^3/uL (0.4-5.4); Lymphocytes % (auto) 28.7 % (10.0-50.0); Mean Corpuscular Hemoglobin 27.1 pg (28.0-32.0); Mean Corpuscular Hgb Conc. 32.7 g/dL (32.0-36.0); Mean Corpuscular Volume 82.7 fL (80.0-100.0); Monocytes # (auto) 0.7 10 ^3/uL (0-1.3); Monocytes % (auto) 5.5 % (0.0-12.0); Neutrophils # (auto) 8.4 10 ^3/uL (1.6-8.6); Neutrophils % (auto) 62.1 % (37.0-80.0); Red Blood Cells 5.64 10^6/uL (4.0-5.20); Red Cell Distribution Width 14.1 % (11.8-14.3); White Blood Cell 13.5 10^3/uL (4.4-10.8)
[2022-10-19 11:25] LABS: Potassium 4.2 mmol/L (3.5-5.1)
[2022-10-19 11:35] LABS: Albumin 3.6 g/dL (3.4-5.0); BUN/Creatinine Ratio 27.4 (10.0-20.0); Bilirubin, Total 0.6 mg/dL (0.2-1.0); Calcium 8.9 mg/dL (8.5-10.1); Total Protein 7.3 g/dL (6.4-8.2)
[2022-10-19 18:57] LABS: Free T3 3.25 pg/mL (2.3-4.2)
[2022-10-19 19:01] LABS: Free T4 (Free Thyroxine) 1.09 ng/dL (0.89-1.76)
== END | disposition home or self-care (01) ==
LOC: LAB 10:27
PROVIDERS: ATTEND Internal Medicine
DX: I10 Essential (primary) hypertension (principal)
CPT/HCPCS: 36415; 80053; 80061; 84439; 84443; 84481; 85025

== ENCOUNTER 2022-10-30 12:33 | Inpatient (IN) | payer OTHER, MEDICAID ==
[~2022-10-30] VITALS: Ht 154.9 cm; Wt 77.0 kg
[2022-10-30] MEDS ORDERED: MORPHINE SULFATE INJ 2 MG/ml SYRG IV ONE (14:15)
[2022-10-30] MEDS ORDERED: ONDANSETRON HCL 4 MG/2 ML VIAL IV ONE (14:15)
[2022-10-30 15:05] LABS: Basophils # (auto) 0.1 10 ^3/uL (0-0.2); Basophils % (auto) 0.5 % (0.0-2.0); Eosinophils # (auto) 0.1 10 ^3/uL (0-0.8); Eosinophils % (auto) 0.5 % (0.0-7.0); Hematocrit 47.2 % (36.0-46.0); Hemoglobin 15.4 g/dL (12.2-16.2); Lymphocytes # (auto) 2.7 10 ^3/uL (0.4-5.4); Lymphocytes % (auto) 12.3 % (10.0-50.0); Mean Corpuscular Hemoglobin 27.1 pg (28.0-32.0); Mean Corpuscular Hgb Conc. 32.7 g/dL (32.0-36.0); Mean Corpuscular Volume 82.8 fL (80.0-100.0); Monocytes # (auto) 1.2 10 ^3/uL (0-1.3); Monocytes % (auto) 5.4 % (0.0-12.0); Neutrophils # (auto) 17.8 10 ^3/uL (1.6-8.6); Neutrophils % (auto) 81.3 % (37.0-80.0); Nucleated Red Blood Cells % 0.2 %; Red Cell Distribution Width 14.9 % (11.8-14.3); White Blood Cell 21.8 10^3/uL (4.4-10.8)
[2022-10-30] MEDS ORDERED: SODIUM CHLORIDE 0.9% 1,000 ML IV ONE (15:15)
[2022-10-30 15:24] LABS: INR 1.03 (0.9-1.15)
[2022-10-30 15:26] LABS: Calcium 9.5 mg/dL (8.5-10.1); Potassium 3.6 mmol/L (3.5-5.1)
[2022-10-30 15:35] LABS: Albumin 3.8 g/dL (3.4-5.0); BUN/Creatinine Ratio 30.5 (10.0-20.0); Bilirubin, Total 0.6 mg/dL (0.2-1.0); Total Protein 7.1 g/dL (6.4-8.2)
[2022-10-30 17:04] LABS: Urine Bacteria FEW /hpf (None Seen); Urine Blood Negative /uL (Negative); Urine Mucus FEW (None Seen); Urine Specific Gravity 1.024 (1.001-1.035); Urine WBC 12 /hpf (0 - 5)
[2022-10-30] MEDS ORDERED: cefTRIAXone 1GM/50ML D5W 50 ML IV ONE (17:15)
[2022-10-30] MEDS ORDERED: ONDANSETRON HCL 4 MG/2 ML VIAL IV PRN (18:15)
[2022-10-30] MEDS ORDERED: MORPHINE SULFATE INJ 2 MG/ml SYRG IV PRN (18:15)
[2022-10-30] MEDS: SODIUM CHLORIDE 0.9% 1,000 ML IV SCH (18:50)
[2022-10-30] MEDS: ENOXAPARIN SOD 40 MG/0.4 ML SYRINGE SC SCH (18:50)
[2022-10-30 21:42] VITALS: BP 114/48
[2022-10-30] MEDS: METOPROLOL TARTRATE 50 MG TAB PO SCH (22:10)
[2022-10-30] MEDS: ATORVASTATIN 20 MG TAB PO SCH (22:13)
[2022-10-30 22:16] VITALS: BP 114/48
[2022-10-31] MEDS: SODIUM CHLORIDE 0.9% 1,000 ML IV SCH ×2 (04:14→15:02)
[2022-10-31 05:00] VITALS: BP_SYST 119; BP_SYST 132; BP_DIAS 60; BP_DIAS 65
[2022-10-31 06:28] LABS: Basophils # (auto) 0.1 10 ^3/uL (0-0.2); Basophils % (auto) 0.7 % (0.0-2.0); Eosinophils # (auto) 0.3 10 ^3/uL (0-0.8); Eosinophils % (auto) 2.5 % (0.0-7.0); Hematocrit 36.8 % (36.0-46.0); Hemoglobin 12.3 g/dL (12.2-16.2); Lymphocytes # (auto) 3.3 10 ^3/uL (0.4-5.4); Lymphocytes % (auto) 28.7 % (10.0-50.0); Mean Corpuscular Hemoglobin 27.7 pg (28.0-32.0); Mean Corpuscular Hgb Conc. 33.3 g/dL (32.0-36.0); Monocytes # (auto) 0.9 10 ^3/uL (0-1.3); Monocytes % (auto) 8.2 % (0.0-12.0); Neutrophils # (auto) 6.9 10 ^3/uL (1.6-8.6); Neutrophils % (auto) 59.9 % (37.0-80.0); Nucleated Red Blood Cells % 0.1 %; Red Blood Cells 4.43 10^6/uL (4.0-5.20); Red Cell Distribution Width 14.5 % (11.8-14.3); White Blood Cell 11.5 10^3/uL (4.4-10.8)
[2022-10-31 06:43] LABS: Potassium 3.3 mmol/L (3.5-5.1)
[2022-10-31 06:49] LABS: Albumin 2.6 g/dL (3.4-5.0); BUN/Creatinine Ratio 30.6 (10.0-20.0); Bilirubin, Total 0.8 mg/dL (0.2-1.0); Calcium 7.4 mg/dL (8.5-10.1); Total Protein 5.6 g/dL (6.4-8.2)
[2022-10-31] MEDS: FERROUS SULFATE 325mg EC TAB PO SCH ×2 (08:35→18:45)
[2022-10-31 09:16] VITALS: BP 148/72
[2022-10-31] MEDS ORDERED: AML5T PO (09:57)
[2022-10-31] MEDS ORDERED: NITR0.4S29 SL (09:57)
[2022-10-31] MEDS ORDERED: METO25TA93 PO (09:57)
[2022-10-31] MEDS ORDERED: CLON0.1T PO (09:57)
[2022-10-31] MEDS ORDERED: HYDR25TA4 PO (09:57)
[2022-10-31] MEDS ORDERED: ASPI81CH59 PO (09:57)
[2022-10-31] MEDS ORDERED: VALS320T PO (09:57)
[2022-10-31] MEDS ORDERED: ATOR40TA52 PO (09:57)
[2022-10-31] MEDS: PANTOPRAZOLE 40 MG TAB PO SCH (10:00)
[2022-10-31] MEDS ORDERED: POTASSIUM CHL 10 Meq TABLET PO SCH (10:00)
[2022-10-31] MEDS: ASPirin 81 mg TAB PO SCH (10:00)
[2022-10-31] MEDS: CLOPIDOGREL BISULFATE 75 MG TAB PO SCH (10:00)
[2022-10-31] MEDS: METOPROLOL TARTRATE 50 MG TAB PO SCH ×2 (10:00→21:26)
[2022-10-31] MEDS: ENOXAPARIN SOD 40 MG/0.4 ML SYRINGE SC SCH (10:00)
[2022-10-31] MEDS: FUROSEMIDE 20 MG TAB PO SCH (10:00)
[2022-10-31] MEDS ORDERED: fentaNYL CITRATE 100 MCG/2 ML VL ONE (11:50)
[2022-10-31] MEDS ORDERED: ceFAZolin 1GM/50ML 100 ML IV ONE (11:56)
[2022-10-31] MEDS: POTASSIUM CHL 10 Meq TABLET PO SCH (12:27)
[2022-10-31] MEDS ORDERED: LABETALOL HCL 5 MG/ML ML 20ML VIAL IV ONE (12:42)
[2022-10-31] MEDS ORDERED: ROCURONIUM 10MG/ML 10ML VIAL IV ONE (12:42)
[2022-10-31] MEDS ORDERED: BUPIVACAINE W/ EPINEPH 0.25% INJ 50ML MDV ONE (12:56)
[2022-10-31] MEDS ORDERED: PROPOFOL 10 MG/ML 20 ML IV ONE (12:57)
[2022-10-31] MEDS ORDERED: cefTRIAXone 1GM/50ML D5W 50 ML IV ONE (13:00)
[2022-10-31] MEDS ORDERED: ONDANSETRON HCL 4 MG/2 ML VIAL ONE (13:04)
[2022-10-31] MEDS ORDERED: NEOSTIGMINE 1 MG/ML INJ (10mg/10ML VIAL) ONE (13:06)
[2022-10-31] MEDS ORDERED: GLYCOPYRROLATE 0.2 MG/ML 1ML VIAL ONE (13:06)
[2022-10-31] MEDS ORDERED: DexAMETHasone SOD PHOS 4 MG/1ML SDV INJ IV ONE (13:21)
[2022-10-31] MEDS ORDERED: ONDANSETRON HCL 4 MG/2 ML VIAL IV PRN (13:45)
[2022-10-31] MEDS ORDERED: HYDROmorphone HCL 2 MG/ML VL/or syr IV PRN (13:45)
[2022-10-31] MEDS ORDERED: LABETALOL HCL 5 MG/ML 4ML SYRINGE IV PRN (13:45)
[2022-10-31] MEDS ORDERED: ceFAZolin 2 GM/D5W100ml 100 ML IV SCH (14:00)
[2022-10-31] MEDS ORDERED: HYDROmorphone HCL 2 MG/ML VL/or syr IV ONE (14:10)
[2022-10-31 17:06] VITALS: BP 137/66
[2022-10-31] MEDS: HYDROcodone-ACET 5/325MG TAB PO PRN (19:25)
[2022-10-31] MEDS: ceFAZolin 2 GM/D5W100ml 100 ML IV SCH (19:39)
[2022-10-31] MEDS: ATORVASTATIN 20 MG TAB PO SCH (21:26)
[2022-10-31 22:00] VITALS: BP 133/62
[2022-11-01] MEDS: SODIUM CHLORIDE 0.9% 1,000 ML IV SCH ×3 (02:11→20:15)
[2022-11-01] MEDS: ceFAZolin 2 GM/D5W100ml 100 ML IV SCH ×2 (03:32→14:20)
[2022-11-01 05:00] VITALS: BP 146/67
[2022-11-01 09:00] VITALS: BP 113/71
[2022-11-01 09:17] LABS: Basophils # (auto) 0.3 10 ^3/uL (0-0.2); Basophils % (auto) 1.8 % (0.0-2.0); Eosinophils # (auto) 0.1 10 ^3/uL (0-0.8); Eosinophils % (auto) 0.4 % (0.0-7.0); Hematocrit 36.6 % (36.0-46.0); Hemoglobin 11.9 g/dL (12.2-16.2); Lymphocytes # (auto) 1.6 10 ^3/uL (0.4-5.4); Lymphocytes % (auto) 8.7 % (10.0-50.0); Mean Corpuscular Hgb Conc. 32.6 g/dL (32.0-36.0); Mean Corpuscular Volume 82.8 fL (80.0-100.0); Monocytes # (auto) 1.7 10 ^3/uL (0-1.3); Monocytes % (auto) 9.5 % (0.0-12.0); Neutrophils # (auto) 14.5 10 ^3/uL (1.6-8.6); Neutrophils % (auto) 79.6 % (37.0-80.0); Nucleated Red Blood Cells % 0.1 %; Red Blood Cells 4.42 10^6/uL (4.0-5.20); Red Cell Distribution Width 14.7 % (11.8-14.3); White Blood Cell 18.2 10^3/uL (4.4-10.8)
[2022-11-01 09:24] LABS: Calcium 7.7 mg/dL (8.5-10.1); Potassium 3.3 mmol/L (3.5-5.1)
[2022-11-01 09:26] LABS: BUN/Creatinine Ratio 21.4 (10.0-20.0)
[2022-11-01] MEDS: ENOXAPARIN SOD 40 MG/0.4 ML SYRINGE SC SCH (10:02)
[2022-11-01] MEDS: HYDROcodone-ACET 5/325MG TAB PO PRN (10:03)
[2022-11-01] MEDS: ASPirin 81 mg TAB PO SCH (10:03)
[2022-11-01] MEDS: DOCUSATE SOD 100 MG CAP PO PRN (10:03)
[2022-11-01] MEDS: POTASSIUM CHL 10 Meq TABLET PO SCH (10:03)
[2022-11-01] MEDS: PANTOPRAZOLE 40 MG TAB PO SCH (10:04)
[2022-11-01] MEDS: CLOPIDOGREL BISULFATE 75 MG TAB PO SCH (10:04)
[2022-11-01] MEDS: FERROUS SULFATE 325mg EC TAB PO SCH ×2 (10:04→18:27)
[2022-11-01] MEDS: FUROSEMIDE 20 MG TAB PO SCH (10:05)
[2022-11-01] MEDS: cefTRIAXone 1GM/50ML D5W 50 ML IV SCH (10:05)
[2022-11-01] MEDS: METOPROLOL TARTRATE 50 MG TAB PO SCH ×2 (10:05→21:22)
[2022-11-01 13:00] VITALS: BP 154/73
[2022-11-01 17:00] VITALS: BP 160/74
[2022-11-01 18:55] VITALS: BP 151/69
[2022-11-01] MEDS: ATORVASTATIN 20 MG TAB PO SCH (21:21)
[2022-11-01 22:00] VITALS: BP 153/63
[2022-11-02] MEDS: HYDROcodone-ACET 5/325MG TAB PO PRN ×2 (00:29→10:33)
[2022-11-02] MEDS ORDERED: cloNIDine HCL 0.1 MG TAB PO ONE (00:45)
[2022-11-02 05:00] VITALS: BP 135/62
[2022-11-02] MEDS: SODIUM CHLORIDE 0.9% 1,000 ML IV SCH ×2 (06:15→16:15)
[2022-11-02 08:55] LABS: Calcium 7.9 mg/dL (8.5-10.1); Potassium 3.3 mmol/L (3.5-5.1)
[2022-11-02 09:00] VITALS: BP 131/59
[2022-11-02 09:05] LABS: Basophils # (auto) 0.1 10 ^3/uL (0-0.2); Basophils % (auto) 0.6 % (0.0-2.0); Eosinophils # (auto) 0.3 10 ^3/uL (0-0.8); Eosinophils % (auto) 1.6 % (0.0-7.0); Hematocrit 34.8 % (36.0-46.0); Hemoglobin 11.4 g/dL (12.2-16.2); Lymphocytes # (auto) 4.5 10 ^3/uL (0.4-5.4); Lymphocytes % (auto) 25.9 % (10.0-50.0); Mean Corpuscular Hemoglobin 27.4 pg (28.0-32.0); Mean Corpuscular Hgb Conc. 32.7 g/dL (32.0-36.0); Mean Corpuscular Volume 83.8 fL (80.0-100.0); Monocytes # (auto) 1.3 10 ^3/uL (0-1.3); Monocytes % (auto) 7.5 % (0.0-12.0); Neutrophils # (auto) 11.2 10 ^3/uL (1.6-8.6); Neutrophils % (auto) 64.4 % (37.0-80.0); Nucleated Red Blood Cells % 0.1 %; Red Blood Cells 4.15 10^6/uL (4.0-5.20); Red Cell Distribution Width 14.7 % (11.8-14.3); White Blood Cell 17.3 10^3/uL (4.4-10.8)
[2022-11-02] MEDS: cefTRIAXone 1GM/50ML D5W 50 ML IV SCH (10:10)
[2022-11-02] MEDS: CLOPIDOGREL BISULFATE 75 MG TAB PO SCH (10:12)
[2022-11-02] MEDS: PANTOPRAZOLE 40 MG TAB PO SCH (10:12)
[2022-11-02] MEDS: FERROUS SULFATE 325mg EC TAB PO SCH ×2 (10:12→17:58)
[2022-11-02] MEDS: POTASSIUM CHL 10 Meq TABLET PO SCH (10:12)
[2022-11-02] MEDS: ASPirin 81 mg TAB PO SCH (10:12)
[2022-11-02] MEDS: METOPROLOL TARTRATE 50 MG TAB PO SCH ×2 (10:13→21:23)
[2022-11-02] MEDS: ENOXAPARIN SOD 40 MG/0.4 ML SYRINGE SC SCH (10:14)
[2022-11-02] MEDS: FUROSEMIDE 20 MG TAB PO SCH (10:14)
[2022-11-02] MEDS: DOCUSATE SOD 100 MG CAP PO PRN (10:33)
[2022-11-02 13:00] VITALS: BP 124/61
[2022-11-02 16:38] VITALS: BP 118/61
[2022-11-02] MEDS: ATORVASTATIN 20 MG TAB PO SCH (21:22)
[2022-11-02 22:00] VITALS: BP 150/65
[2022-11-03] MEDS: SODIUM CHLORIDE 0.9% 1,000 ML IV SCH ×4 (02:15→22:57)
[2022-11-03] MEDS: HYDROcodone-ACET 5/325MG TAB PO PRN ×2 (03:19→17:39)
[2022-11-03 05:00] VITALS: BP 129/63
[2022-11-03 09:00] VITALS: BP 115/58
[2022-11-03] MEDS: cefTRIAXone 1GM/50ML D5W 50 ML IV SCH (09:58)
[2022-11-03] MEDS: FERROUS SULFATE 325mg EC TAB PO SCH ×2 (09:59→17:39)
[2022-11-03] MEDS: FUROSEMIDE 20 MG TAB PO SCH (10:00)
[2022-11-03] MEDS: CLOPIDOGREL BISULFATE 75 MG TAB PO SCH (10:00)
[2022-11-03] MEDS: METOPROLOL TARTRATE 50 MG TAB PO SCH ×2 (10:00→21:35)
[2022-11-03] MEDS: PANTOPRAZOLE 40 MG TAB PO SCH (10:01)
[2022-11-03] MEDS: POTASSIUM CHL 10 Meq TABLET PO SCH (10:01)
[2022-11-03] MEDS: ENOXAPARIN SOD 40 MG/0.4 ML SYRINGE SC SCH (10:01)
[2022-11-03] MEDS: ASPirin 81 mg TAB PO SCH (10:01)
[2022-11-03 13:00] VITALS: BP 145/60
[2022-11-03 17:00] VITALS: BP 122/62
[2022-11-03] MEDS: ATORVASTATIN 20 MG TAB PO SCH (21:35)
[2022-11-03 22:00] VITALS: BP 120/69
[2022-11-04] MEDS: HYDROcodone-ACET 5/325MG TAB PO PRN ×3 (06:15→23:54)
[2022-11-04 08:30] VITALS: BP 147/66
[2022-11-04] MEDS: CLOPIDOGREL BISULFATE 75 MG TAB PO SCH (09:19)
[2022-11-04] MEDS: PANTOPRAZOLE 40 MG TAB PO SCH (09:19)
[2022-11-04] MEDS: cefTRIAXone 1GM/50ML D5W 50 ML IV SCH (09:19)
[2022-11-04] MEDS: ASPirin 81 mg TAB PO SCH (09:20)
[2022-11-04] MEDS: METOPROLOL TARTRATE 50 MG TAB PO SCH ×2 (09:20→21:35)
[2022-11-04] MEDS: FUROSEMIDE 20 MG TAB PO SCH (09:20)
[2022-11-04] MEDS: ENOXAPARIN SOD 40 MG/0.4 ML SYRINGE SC SCH (09:21)
[2022-11-04] MEDS: FERROUS SULFATE 325mg EC TAB PO SCH ×2 (09:21→17:48)
[2022-11-04] MEDS: POTASSIUM CHL 10 Meq TABLET PO SCH (09:21)
[2022-11-04 17:05] VITALS: BP 144/61
[2022-11-04] MEDS: SODIUM CHLORIDE 0.9% 1,000 ML IV SCH ×2 (17:49→21:34)
[2022-11-04] MEDS: ATORVASTATIN 20 MG TAB PO SCH (21:35)
[2022-11-04 22:00] VITALS: BP 144/70
[2022-11-05] VITALS (8 sets, daily range): BP systolic 116–157; BP diastolic 60–83
[2022-11-05] MEDS: HYDROcodone-ACET 5/325MG TAB PO PRN ×2 (06:37→17:16)
[2022-11-05 09:03] LABS: Basophils # (auto) 0.1 10 ^3/uL (0-0.2); Basophils % (auto) 0.6 % (0.0-2.0); Eosinophils # (auto) 0.3 10 ^3/uL (0-0.8); Eosinophils % (auto) 1.8 % (0.0-7.0); Hematocrit 33.7 % (36.0-46.0); Hemoglobin 11.2 g/dL (12.2-16.2); Lymphocytes # (auto) 3.3 10 ^3/uL (0.4-5.4); Lymphocytes % (auto) 17.9 % (10.0-50.0); Mean Corpuscular Hemoglobin 27.7 pg (28.0-32.0); Mean Corpuscular Hgb Conc. 33.1 g/dL (32.0-36.0); Mean Corpuscular Volume 83.6 fL (80.0-100.0); Monocytes # (auto) 1.1 10 ^3/uL (0-1.3); Monocytes % (auto) 5.7 % (0.0-12.0); Neutrophils # (auto) 13.6 10 ^3/uL (1.6-8.6); Red Blood Cells 4.03 10^6/uL (4.0-5.20); Red Cell Distribution Width 14.7 % (11.8-14.3); White Blood Cell 18.4 10^3/uL (4.4-10.8)
[2022-11-05] MEDS: PANTOPRAZOLE 40 MG TAB PO SCH (09:55)
[2022-11-05] MEDS: CLOPIDOGREL BISULFATE 75 MG TAB PO SCH (09:57)
[2022-11-05] MEDS: FERROUS SULFATE 325mg EC TAB PO SCH ×2 (09:57→17:13)
[2022-11-05] MEDS: POTASSIUM CHL 10 Meq TABLET PO SCH (09:58)
[2022-11-05] MEDS: METOPROLOL TARTRATE 50 MG TAB PO SCH ×2 (09:59→21:54)
[2022-11-05] MEDS: FUROSEMIDE 20 MG TAB PO SCH (10:00)
[2022-11-05] MEDS: CIPROFLOXACIN HCL 500 MG TAB PO SCH ×2 (10:01→21:54)
[2022-11-05] MEDS: ASPirin 81 mg TAB PO SCH (10:01)
[2022-11-05] MEDS: ENOXAPARIN SOD 40 MG/0.4 ML SYRINGE SC SCH (10:03)
[2022-11-05 10:54] LABS: Albumin 2.3 g/dL (3.4-5.0); BUN/Creatinine Ratio 18.4 (10.0-20.0); Calcium 7.9 mg/dL (8.5-10.1); Potassium 3.6 mmol/L (3.5-5.1)
[2022-11-05 10:57] LABS: Bilirubin, Total 1.1 mg/dL (0.2-1.0); Total Protein 6.1 g/dL (6.4-8.2)
[2022-11-05] MEDS: SODIUM CHLORIDE 0.9% 1,000 ML IV SCH (14:17)
[2022-11-05] MEDS: ATORVASTATIN 20 MG TAB PO SCH (21:54)
[2022-11-06] MEDS: HYDROcodone-ACET 5/325MG TAB PO PRN ×2 (01:05→13:41)
[2022-11-06] MEDS: SODIUM CHLORIDE 0.9% 1,000 ML IV SCH ×2 (01:06→10:24)
[2022-11-06 05:00] VITALS: BP 132/60
[2022-11-06] MEDS ORDERED: cefTRIAXone 1GM/50ML D5W 50 ML IV ONE (08:30)
[2022-11-06] MEDS: FERROUS SULFATE 325mg EC TAB PO SCH (08:50)
[2022-11-06 09:00] VITALS: BP 155/68
[2022-11-06] MEDS: ASPirin 81 mg TAB PO SCH (10:21)
[2022-11-06] MEDS: FUROSEMIDE 20 MG TAB PO SCH (10:21)
[2022-11-06] MEDS: PANTOPRAZOLE 40 MG TAB PO SCH (10:21)
[2022-11-06] MEDS: POTASSIUM CHL 10 Meq TABLET PO SCH (10:22)
[2022-11-06] MEDS: CLOPIDOGREL BISULFATE 75 MG TAB PO SCH (10:22)
[2022-11-06] MEDS: METOPROLOL TARTRATE 50 MG TAB PO SCH (10:22)
[2022-11-06] MEDS: ENOXAPARIN SOD 40 MG/0.4 ML SYRINGE SC SCH (10:22)
[2022-11-06 11:28] VITALS: BP 135/67
[2022-11-06 13:00] VITALS: BP 144/71
[2022-11-06 17:00] VITALS: BP 135/66
[2022-11-07] MEDS ORDERED: cefTRIAXone 1GM/50ML D5W 50 ML IV SCH (09:00)
== END 2022-11-06 17:51 | DRG 853 ==
LOC: ER 12:33 → EDBD 12:33 → OVERFLOW 18:17 → CENTRAL 20:59
PROVIDERS: ADMIT Nurse Practitioner Family; ATTEND Family Medicine
PROC: BQ1FZZZ Fluoroscopy of Left Lower Leg (ICD-10-PCS; 2022-10-31)
PROC: 0QSH04Z Reposition Left Tibia with Internal Fixation Device, Open Approach (ICD-10-PCS; principal; 2022-10-31 12:05)
PROC: 05HB33Z Insertion of Infusion Device into Right Basilic Vein, Percutaneous Approach (ICD-10-PCS; 2022-11-02)
PROC: B54MZZA Ultrasonography of Right Upper Extremity Veins, Guidance (ICD-10-PCS; 2022-11-02)
DX: A41.59 Other Gram-negative sepsis (principal); I50.33 Acute on chronic diastolic (congestive) heart failure; N30.00 Acute cystitis without hematuria; N17.9 Acute kidney failure, unspecified; S82.102A Unspecified fracture of upper end of left tibia, initial encounter for closed fracture; E78.00 Pure hypercholesterolemia, unspecified; I11.0 Hypertensive heart disease with heart failure; I25.10 Atherosclerotic heart disease of native coronary artery without angina pectoris; S82.832A Other fracture of upper and lower end of left fibula, initial encounter for closed fracture; F41.9 Anxiety disorder, unspecified; Z20.822 Contact with and (suspected) exposure to COVID-19; I25.2 Old myocardial infarction; Z79.82 Long term (current) use of aspirin; Z79.899 Other long term (current) drug therapy; Z82.49 Family history of ischemic heart disease and other diseases of the circulatory system; Z83.3 Family history of diabetes mellitus; Z95.1 Presence of aortocoronary bypass graft; Y93.89 Activity, other specified; Y92.098 Other place in other non-institutional residence as the place of occurrence of the external cause; Y99.8 Other external cause status; W01.0XXA Fall on same level from slipping, tripping and stumbling without subsequent striking against object, initial encounter; B96.1 Klebsiella pneumoniae [K. pneumoniae] as the cause of diseases classified elsewhere
CPT/HCPCS: 36415; 71045; 73590; 73610; 76000; 80048; 80053; 81001; 85025; 85610; 86850; 86900; 86901; 87040; 87086; 87088; 87186; 87426; 93005; 93306; 96361; 96365; 96375; 97110; 97116; 97163; 97530; G0378; J0690; J0696; J1100; J2405; J2704

== ENCOUNTER → 2023-10-15 | Outpatient (CLI) | payer OTHER, MEDICAID ==
[~2023-10-15] VITALS: Ht 154.9 cm; Wt 68.0 kg
[~2023-10-15] MED LIST changes: +AML5T PO; +ASPI81CH59 PO; +ATOR40TA52 PO; +CLON0.1T PO; +HYDR25TA4 PO; +METO25TA93 PO; +NITR0.4S29 SL; +POTA-215 PO; -POTA1TAB61 PO; +VALS320T PO
[2023-10-15] MEDS: cloNIDine HCL 0.1 MG TAB PO ONE ×2 (10:58→11:22)
[2023-10-15] MEDS: cloNIDine HCL 0.1 MG TAB ONE ×2 (11:02→11:26)
[2023-10-15] MEDS: ADENOSINE 57 MG in GIVE UN-DILUTED 0 ML IV ONE (11:56)
== END | disposition home or self-care (01) ==
LOC: XYW 09:54
PROVIDERS: ATTEND Internal Medicine
DX: I11.0 Hypertensive heart disease with heart failure (principal); I50.9 Heart failure, unspecified; R07.89 Other chest pain; I48.0 Paroxysmal atrial fibrillation; I70.0 Atherosclerosis of aorta; Z87.81 Personal history of (healed) traumatic fracture
CPT/HCPCS: 78452; 93017; A9500; J0153

== ENCOUNTER 2025-02-28 09:10 | Outpatient (CLI) | payer OTHER, MEDICAID ==
[~2025-02-28] VITALS: Ht 170.2 cm; Wt 66.7 kg
[2025-02-28] MEDS: REGADENOSON 0.4 MG/5 ML SYRG IV ONE ×2 (09:43→11:17)
--- NOTE | 2025-03-06 06:39 | DVHSR ---
APPROVED REPORT Exam: Nuclear Stress Test BMI: 0 Stress Test Details Stress Test: Pharmacologic stress testing performed using 0.4 mg of regadenoson per 5 mL given IV over 10 seconds. HR Resting HR: 57 bpm Max Heart Rate (APMHR): 142.006241 bpm Max HR Achieved: 84 bpm Target HR (85% APMHR): 120.555089 bpm % of APMHR: 59.15 Recovery HR: 62 bpm BP Resting BP: 158/78 mmHg Recovery BP: 139/74 mmHg ECG Resting ECG: Sinus Bradycardia Clinical Reason for Termination: Completed protocol Nurse Comments Recieved pt. from [facility]. A/Ox4 on RA. Connected to school bus monitor, VS stable. PIV flushes well. Reviewed POC. Pt. verbalized understanding of procedure including risks and side effects, agrees for stress testing. Lexiscan stress test performed per protocol. [facility] tech administered Cardiolite. Pt. tolerated well. Pt. stable, no change on exam. VS returned to baseline. Transferred to [facility] via wheelchair w/ tech. Stress ECG Conclusion lvef 55% normal perfusion scan no ischemia NM EXAM: Myocardial Perfusion REST/STRESS Imaging Protocol: Rest Tc-99m/Stress Tc-99m 1 day Resting Data Rest SPECT myocardial perfusion imaging was performed in supine position 65 minutes following the intravenous injection of 10.3 mCi of Tc-99m Sestamibi. Time of rest injection: 0940 Time of rest imagin Administration Route: IV Administration Site: Left Hand Pharmacologic Stress Pharmacologic stress test was performed by injecting Regadenoson 0.4 mg IV push followed by the intravenous injection of 31.5 mCi of Tc-99m Sestamibi. Time of stress injection: 1115 Time of stress imagin Administration Route: IV Administration Site: Left Hand Gated Stress SPECT was performed 70 minutes after stress injection. The images were gated to evaluate regional wall motion and calculate left ventricular ejection fraction. Nuclear Conclusion Nuclear Findings: negative for ischemia lvef 55% normal perfusion scan no ischemia
== END 2025-02-28 17:00 | disposition home or self-care (01) ==
LOC: XYW 09:10
PROVIDERS: ATTEND Internal Medicine
DX: R00.1 Bradycardia, unspecified (principal); R07.9 Chest pain, unspecified; I25.10 Atherosclerotic heart disease of native coronary artery without angina pectoris
CPT/HCPCS: 78452; 93017; A9500; J2785